=== PATIENT | female | born 2000 | race African-American/Black ===

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

== ENCOUNTER 2019-01-21 11:17 | Emergency (ER) | payer SELFPAY ==
[~2019-01-21] VITALS: Ht 160 cm; Wt 56.7 kg
[2019-01-21 11:31] VITALS: BP 122/60
[2019-01-21] MEDS ORDERED: RANI300T3 PO (11:40)
[2019-01-21] MEDS ORDERED: ONDA4TAB12 PO (11:40)
--- NOTE | 2019-01-21 11:41 | PHYS DOC ---
Past Medical History Past Medical History: No Pertinent History Past Surgical History: No Surgical History Alcohol Use: None Drug Use: None Adult General Chief Complaint Chief Complaint: ABDOMINAL PAIN [facility] HPI 18-year-old otherwise healthy female presents with several-day history of nausea and some upper abdominal cramping. She denies any fever chills or sweats. She denies any melena or hematemesis. She states she feels like she needs to vomit but she can't. She feels like it comes half-way up and stops. She denies that it mccloud her feels like there is acid in her esophagus.[] Review of Systems Review of Systems Constitutional: Denies fever or chills [] Eyes: Denies change in visual acuity, redness, or eye pain [] HENT: Denies nasal congestion or sore throat [] Respiratory: Denies cough or shortness of breath [] Cardiovascular: No additional information not addressed in HPI [] GI: Some upper abdominal discomfort and nausea as described in the history of present illness[] : Denies dysuria or hematuria [] Musculoskeletal: Denies back pain or joint pain [] Integument: Denies rash or skin lesions [] Neurologic: Denies headache, focal weakness or sensory changes [] Endocrine: Denies polyuria or polydipsia [] All other systems were reviewed and found to be within normal limits, except as documented in this note. Allergies Allergies Allergies Coded Allergies Type Severity Reaction Last Updated Verified butorphanol Allergy Severe Anaphylaxis 05/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 [] HENT: Normocephalic, atraumatic, bilateral external ears normal, oropharynx moist, no oral exudates, nose normal. [] Eyes: PERRLA, EOMI, conjunctiva normal, no discharge. [] Neck: Normal range of motion, no tenderness, supple, no stridor. [] Cardiovascular:Heart rate regular rhythm, no murmur [] Lungs & Thorax: Bilateral breath sounds clear to auscultation [] Abdomen: Soft nontender nondistended no rebound no guarding negative Tobin's. [ ] Skin: Warm, dry, no erythema, no rash. [] Back: No tenderness, no CVA tenderness. [] Extremities: No tenderness, no cyanosis, no clubbing, ROM intact, no edema. [] Neurologic: Alert and oriented X 3, normal motor function, normal sensory function, no focal deficits noted. [] Psychologic: Anxious. [] Current Patient Data Lab Values Laboratory Tests Test 01/21/19 11:26 POC Urine HCG, Qualitative Hcg negative (Negative) EKG EKG [] Radiology/Procedures Radiology/Procedures [] Course & Med Decision Making Course & Med Decision Making Pertinent Labs and Imaging studies reviewed. (See chart for details) [] Dragon Disclaimer Dragon Disclaimer This electronic medical record was generated, in whole or in part, using a voice recognition dictation system. Departure Departure Impression: Primary Impression: Nausea Additional Impression: Gastroesophageal reflux Disposition: 01 HOME, SELF-CARE Condition: STABLE Referrals: NO PCP (PCP) Patient Instructions: Gastroesophageal Reflux Disease, Adult, Nausea, Adult Additional Instructions: Return to the emergency department with any new or concerning symptoms. Take all your medication as directed. Scripts Ranitidine Hcl (ZANTAC) 300 Mg Tablet 1 TAB PO QHS for reflux, #90 TAB 3 Refills Prov: AMARILIS FELIX DO 01/21/19 Ondansetron (ONDANSETRON ODT) 4 Mg Tab.rapdis 1 TAB PO PRN Q6-8HRS for VOMITING, #16 TAB Prov: AMARILIS FELIX DO 01/21/19 Problem Qualifiers Additional Impression: Gastroesophageal reflux Esophagitis presence: without esophagitis Qualified Codes: K21.9 - Gastro- esophageal reflux disease without esophagitis AMARILIS FELIX DO Jan 21, 2019 11:40
[2019-01-21] MEDS ORDERED: ONDANSETRON ODT 4 MG TAB.RAPDIS. PO ONE (11:45)
== END 2019-01-21 11:55 | disposition home or self-care (01) ==
LOC: ER 11:17
DX: K21.9 Gastro-esophageal reflux disease without esophagitis (principal); Z88.8 Allergy status to other drugs, medicaments and biological substances
CPT/HCPCS: 81025; 99283; Q0162

== ENCOUNTER 2019-02-09 11:08 | Emergency (ER) | payer SELFPAY ==
[~2019-02-09] VITALS: Ht 160 cm; Wt 56.7 kg
[~2019-02-09 11:08] MED LIST changes: +ONDA4TAB12 PO; +RANI300T3 PO
[2019-02-09] MEDS ORDERED: IV NORMAL SALINE 1000ML BAG 1,000 ML IV SCH (12:07)
[2019-02-09] MEDS ORDERED: ONDANSETRON PF 4 MG/2 ML VIAL. IV ONE (12:15)
[2019-02-09] MEDS ORDERED: fentaNYL PF VIAL 100 MCG/2 ML VIAL IV ONE (12:15)
[2019-02-09 12:21] LABS: BASO % 0 % (0-3); EOS % 0 % (0-3); HEMATOCRIT 41.6 % (36.0-47.0); HEMOGLOBIN 13.7 g/dL (12.0-15.5); LYMPH # 0.7 x10^3/uL (1.0-4.8); LYMPH % 11 % (24-48); MEAN CORPUSCULAR HEMOGLOBIN 30 pg (25-35); MEAN CORPUSCULAR HGB CONC 33 g/dL (31-37); MEAN CORPUSCULAR VOLUME 91 fL (79-100); MONO # 0.5 x10^3/uL (0.0-1.1); MONO % 8 % (0-9); NEUT # 5.1 x10^3uL (1.8-7.7); NEUT % 81 % (31-73); PLATELET COUNT 180 x10^3/uL (140-400); RED BLOOD COUNT 4.55 x10^6/uL (3.50-5.40); RED CELL DISTRIBUTION WIDTH 13.1 % (11.5-14.5); WHITE BLOOD COUNT 6.3 x10^3/uL (4.0-11.0)
[2019-02-09 12:22] LABS: BARBITURATES NEG (NEG); BENZODIAZEPINES NEG (NEG); CANNABINOIDS POS (NEG); COCAINE NEG (NEG); METHADONE NEG (NEG); OPIATES NEG (NEG); PHENCYCLIDINE NEG (NEG)
[2019-02-09 12:23] LABS: BILIRUBIN,URINE NEGATIVE (NEG); CLARITY,URINE CLEAR; COLOR,URINE YELLOW; NITRITE,URINE NEGATIVE (NEG); PH,URINE 6.5; PROTEIN,URINE NEGATIVE (NEG-TRACE)
[2019-02-09 12:25] LABS: AMPHETAMINE/METHAMPHETAMINE NEG (NEG)
[2019-02-09 12:29] LABS: SQUAMOUS EPITHELIAL CELL,UR MOD /LPF
[2019-02-09 12:30] LABS: BACTERIA,URINE FEW /HPF (0-FEW); RBC,URINE OCC /HPF (0-2)
[2019-02-09 12:41] LABS: CALCIUM 8.8 mg/dL (8.5-10.1); CREATININE 0.8 mg/dL (0.6-1.0); GFR 111.8; POTASSIUM 3.5 mmol/L (3.5-5.1)
[2019-02-09 12:46] LABS: ALBUMIN/GLOBULIN RATIO 1.1 (1.0-1.7); TOTAL BILIRUBIN 0.8 mg/dL (0.2-1.0); TOTAL PROTEIN 7.5 g/dL (6.4-8.2)
--- NOTE | 2019-02-09 13:09 | PHYS DOC ---
Past Medical History Past Medical History: No Pertinent History Past Surgical History: No Surgical History Alcohol Use: Occasionally Drug Use: None Adult General Chief Complaint Chief Complaint: ABDOMINAL PAIN HPI HPI Patient is a 18 year old female who presents with low mid abdominal pain and cramping with vomiting and diarrhea since last night. Patient states she's vomited twice and had to times of diarrhea. He states the cramping comes and goes. Patient states she is also having vaginal discharge that is white limited because of her sexual transmitted diseases and treated. Patient denies any past medical history, takes no medications, has had no surgeries. Review of Systems Review of Systems Constitutional: Denies fever or chills [] Eyes: Denies change in visual acuity, redness, or eye pain [] HENT: Denies nasal congestion or sore throat [] Respiratory: Denies cough or shortness of breath [] Cardiovascular: No additional information not addressed in HPI [] GI: low mid abdominal pain, nausea, vomiting, denies bloody stools, + diarrhea [ ] : Denies dysuria or hematuria [] Musculoskeletal: Denies back pain or joint pain [] Integument: Denies rash or skin lesions [] Neurologic: Denies headache, focal weakness or sensory changes [] All other systems were reviewed and found to be within normal limits, except as documented in this note. Current Medications Current Medications Current Medications Medications (Trade) Dose Ordered Sig/Shabbir Start Time Stop Time Status Last Admin Dose Admin Azithromycin (Zithromax) 1,000 mg 1X ONCE 02/09/19 13:15 02/09/19 13:16 DC 02/09/19 13:55 1,000 MG Ceftriaxone Sodium (Rocephin Im) 250 mg 1X ONCE 02/09/19 13:15 02/09/19 13:16 DC 02/09/19 13:53 250 MG Fentanyl Citrate (Fentanyl 2ml Vial) 50 mcg 1X ONCE 02/09/19 12:15 02/09/19 12:16 DC 02/09/19 12:27 50 MCG Ondansetron HCl (Zofran) 4 mg 1X ONCE 02/09/19 12:15 02/09/19 12:16 DC 02/09/19 12:27 4 MG Sodium Chloride 1,000 ml @ 1,000 mls/hr Q1H 02/09/19 12:07 02/09/19 13:06 DC 02/09/19 12:27 1,000 MLS/HR Allergies Allergies Allergies Coded Allergies Type Severity Reaction Last Updated Verified butorphanol Allergy Severe Anaphylaxis 05/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 [] HENT: Normocephalic, atraumatic, bilateral external ears normal, oropharynx moist, no oral exudates, nose normal. [] Eyes: PERRLA, EOMI, conjunctiva normal, no discharge. [] Neck: Normal range of motion, no tenderness, supple, no stridor. [] Cardiovascular:Heart rate regular rhythm, no murmur [] Lungs & Thorax: Bilateral breath sounds clear to auscultation [] Abdomen: Bowel sounds normal, soft, no tenderness, no masses, no pulsatile masses. [] Skin: Warm, dry, no erythema, no rash. [] Back: No tenderness, no CVA tenderness. [] Extremities: No tenderness, no cyanosis, no clubbing, ROM intact, no edema. [] Neurologic: Alert and oriented X 3, normal motor function, normal sensory function, no focal deficits noted. [] Psychologic: Affect normal, judgement normal, mood normal. Normal Physical Exam[] Current Patient Data Vital Signs Vital Signs Date Time Temp Pulse Resp B/P (MAP) Pulse Ox O2 Delivery O2 Flow Rate FiO2 02/09/19 13:48 68 17 113/65 (81) 100 Room Air 02/09/19 11:55 98.5 98.5 Lab Values Laboratory Tests Test 02/09/19 11:45 02/09/19 11:47 02/09/19 12:10 Urine Collection Type Unknown Urine Color Yellow Urine Clarity Clear Urine pH 6.5 Urine Specific [place] 1.025 Urine Protein Negative mg/dL (NEG-TRACE) Urine Glucose (UA) Negative mg/dL (NEG) Urine Ketones (Stick) Negative mg/dL (NEG) Urine Blood Negative (NEG) Urine Nitrite Negative (NEG) Urine Bilirubin Negative (NEG) Urine Urobilinogen Dipstick 1.0 mg/dL (0.2 mg/dL) Urine Leukocyte Esterase Negative (NEG) Urine RBC Occ /HPF (0-2) Urine WBC 1-4 /HPF (0-4) Urine Squamous Epithelial Cells Mod /LPF Urine Bacteria Few /HPF (0-FEW) Urine Mucus Marked /LPF Urine Opiates Screen Neg (NEG) Urine Methadone Screen Neg (NEG) Urine Barbiturates Neg (NEG) Urine Phencyclidine Screen Neg (NEG) Urine Amphetamine/Methamphetamine Neg (NEG) Urine Benzodiazepines Screen Neg (NEG) Urine Cocaine Screen Neg (NEG) Urine Cannabinoids Screen Pos (NEG) Urine Ethyl Alcohol Neg (NEG) POC Urine HCG, Qualitative Hcg negative (Negative) White Blood Count 6.3 x10^3/uL (4.0-11.0) Red Blood Count 4.55 x10^6/uL (3.50-5.40) Hemoglobin 13.7 g/dL (12.0-15.5) Hematocrit 41.6 % (36.0-47.0) Mean Corpuscular Volume 91 fL (79-100) Mean Corpuscular Hemoglobin 30 pg (25-35) Mean Corpuscular Hemoglobin Concent 33 g/dL (31-37) Red Cell Distribution Width 13.1 % (11.5-14.5) Platelet Count 180 x10^3/uL (140-400) Neutrophils (%) (Auto) 81 % (31-73) H Lymphocytes (%) (Auto) 11 % (24-48) L Monocytes (%) (Auto) 8 % (0-9) Eosinophils (%) (Auto) 0 % (0-3) Basophils (%) (Auto) 0 % (0-3) Neutrophils # (Auto) 5.1 x10^3uL (1.8-7.7) Lymphocytes # (Auto) 0.7 x10^3/uL (1.0-4.8) L Monocytes # (Auto) 0.5 x10^3/uL (0.0-1.1) Eosinophils # (Auto) 0.0 x10^3/uL (0.0-0.7) Basophils # (Auto) 0.0 x10^3/uL (0.0-0.2) Sodium Level 139 mmol/L (136-145) Potassium Level 3.5 mmol/L (3.5-5.1) Chloride Level 101 mmol/L (98-107) Carbon Dioxide Level 26 mmol/L (21-32) Anion Gap 12 (6-14) Blood Urea Nitrogen 14 mg/dL (7-20) Creatinine 0.8 mg/dL (0.6-1.0) Estimated GFR (Cockcroft-Gault) 111.8 BUN/Creatinine Ratio 18 (6-20) Glucose Level 94 mg/dL (70-99) Calcium Level 8.8 mg/dL (8.5-10.1) Total Bilirubin 0.8 mg/dL (0.2-1.0) Aspartate Amino Transferase (AST) 21 U/L (15-37) Alanine Aminotransferase (ALT) 20 U/L (14-59) Alkaline Phosphatase 70 U/L (46-116) Total Protein 7.5 g/dL (6.4-8.2) Albumin 4.0 g/dL (3.4-5.0) Albumin/Globulin Ratio 1.1 (1.0-1.7) Lipase 128 U/L (73-393) Laboratory Tests 02/09/19 12:10 Laboratory Tests 02/09/19 12:10 Microbiology 02/09/19 Wet Prep - Final, Complete EKG EKG [] Radiology/Procedures Radiology/Procedures [] Course & Med Decision Making Course & Med Decision Making Patient is a 18 year old female who presents with low mid abdominal pain and cramping with vomiting and diarrhea since last night. Patient states she's vomited twice and had to times of diarrhea. She states the cramping comes and goes. Patient states she is also having vaginal discharge that is white limited because of her sexual transmitted diseases and treated. Patient denies any past medical history, takes no medications, has had no surgeries. Alert and oriented. Skin pink warm and dry. Abdomen is soft and nontender. Vital signs are within normal limits. Afebrile. Lungs are clear to auscultation all lobes. Mucus membranes are moist. Patient is up and walking around room with her toddler. Patient states she has not had a menstrual period since then december. Urine is negative. Patient denies dysuria, chest pain, shortness of air, recent illness, headache, dizziness. Patient is treated for Chlamydia and gonorrhea in the ED. urinalysis shows no infection. Blood work is unremarkable. Patient is discharged with nausea and vomiting and is to follow-up with her primary care provider. Patient is told she will be called in 48 hours if her chlamydia or gonorrhea are positive. Pelvic Exam: Gas Leak Inspector present Abdomen: Nontender External Genitalia: Normal Skin Speculum: Normal vaginal mucosa, white cervical discharge Bimanual: No adnexal masses or tenderness, No CMT Dragon Disclaimer Dragon Disclaimer This electronic medical record was generated, in whole or in part, using a voice recognition dictation system. Departure Departure Impression: Primary Impression: Nausea and vomiting Additional Impression: Concern about sexually transmitted disease in female without diagnosis Disposition: 01 HOME, SELF-CARE Condition: STABLE Referrals: NO PCP (PCP) Patient Instructions: Nausea and Vomiting, Sexually Transmitted Disease Additional Instructions: Follow up with primary care provider. Take medication as prescribed. You will only be called in 48 hours if you're chlamydia or gonorrhea comes back positive. You have been treated in the ED today for sexual transmitted diseases. Scripts Ondansetron (ONDANSETRON ODT) 4 Mg Tab.rapdis 1 TAB PO PRN Q6-8HRS, #16 TAB Prov: JUAQUIN KELLER APRN 02/09/19 Problem Qualifiers Primary Impression: Nausea and vomiting Vomiting type: unspecified Vomiting Intractability: non-intractable Qualified Codes: R11.2 - Nausea with vomiting, unspecified JUAQUIN KELLER APRN Feb 09, 2019 13:09
[2019-02-09] MEDS ORDERED: AZITHROMYCIN 250 MG TABLET. PO ONE (13:15)
[2019-02-09] MEDS ORDERED: cefTRIAXone IM 250 MG VIAL IM ONE (13:15)
[2019-02-09] MEDS ORDERED: ONDA4TAB12 PO (14:47)
[2019-02-09 15:00] VITALS: BP 111/64
[2019-02-10 13:27] LABS: GC PROBE Negative (Negative)
== END 2019-02-09 15:00 | disposition home or self-care (01) ==
LOC: ER 11:08
DX: R11.2 Nausea with vomiting, unspecified (principal); R10.30 Lower abdominal pain, unspecified; R19.7 Diarrhea, unspecified; N89.8 Other specified noninflammatory disorders of vagina; Z20.2 Contact with and (suspected) exposure to infections with a predominantly sexual mode of transmission; Z88.8 Allergy status to other drugs, medicaments and biological substances
CPT/HCPCS: 36415; 80053; 80307; 81001; 81025; 83690; 85025; 87491; 87591; 96361; 96372; 96374; 96375; 99283; J0696; J2405; J3010; J7030; Q0111; Q0144

== ENCOUNTER 2019-02-22 15:39 | Emergency (ER) | payer SELFPAY ==
[~2019-02-22] VITALS: Ht 160 cm; Wt 56.7 kg
[2019-02-22 16:13] VITALS: BP 109/62
[2019-02-22 16:42] LABS: BILIRUBIN,URINE NEGATIVE (NEG); CLARITY,URINE CLEAR; COLOR,URINE YELLOW; NITRITE,URINE NEGATIVE (NEG); PROTEIN,URINE NEGATIVE (NEG-TRACE)
[2019-02-22 16:48] LABS: BARBITURATES NEG (NEG); BENZODIAZEPINES NEG (NEG); CANNABINOIDS POS (NEG); COCAINE NEG (NEG); METHADONE NEG (NEG); OPIATES NEG (NEG); PHENCYCLIDINE NEG (NEG)
[2019-02-22 16:51] LABS: BACTERIA,URINE FEW /HPF (0-FEW); SQUAMOUS EPITHELIAL CELL,UR FEW /LPF; WBC,URINE 0 /HPF (0-4)
[2019-02-22 16:56] LABS: AMPHETAMINE/METHAMPHETAMINE NEG (NEG)
--- NOTE | 2019-02-22 16:58 | PHYS DOC ---
Past Medical History Past Medical History: No Pertinent History Past Surgical History: No Surgical History Alcohol Use: Occasionally Drug Use: None Adult General Chief Complaint Chief Complaint: VAGINAL BLEEDING HPI HPI Patient is a 18 year old female with no significant medical history who presents today complaining of vaginal bleeding after having intercourse a couple minutes ago. Patient states she was is on her menstrual cycle which she believes ended yesterday. Denies any pain. Denies any chance she is . Denies any concerns of STDs. Review of Systems Review of Systems Constitutional: Denies fever or chills [] Eyes: Denies change in visual acuity, redness, or eye pain [] HENT: Denies nasal congestion or sore throat [] Respiratory: Denies cough or shortness of breath [] Cardiovascular: No additional information not addressed in HPI [] GI: Reports vaginal bleeding after having intercourse. Denies abdominal pain, nausea, vomiting, bloody stools or diarrhea [] : Denies dysuria or hematuria [] Musculoskeletal: Denies back pain or joint pain [] Integument: Denies rash or skin lesions [] Neurologic: Denies headache, focal weakness or sensory changes [] All other systems were reviewed and found to be within normal limits, except as documented in this note. Allergies Allergies Allergies Coded Allergies Type Severity Reaction Last Updated Verified butorphanol Allergy Severe Anaphylaxis 05/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 [] HENT: Normocephalic, atraumatic, bilateral external ears normal, oropharynx moist, no oral exudates, nose normal. [] Eyes: PERRLA, EOMI, conjunctiva normal, no discharge. [] Neck: Normal range of motion, no tenderness, supple, no stridor. [] Cardiovascular:Heart rate regular rhythm, no murmur [] Lungs & Thorax: Bilateral breath sounds clear to auscultation [] Abdomen: Bowel sounds normal, soft, no tenderness, no masses, no pulsatile masses. [] Pelvic exam External pelvic appears normal, cervix is visualized, closed, no CMT, no adnexal tenderness, trace amount of bright red blood in the vaginal vault consistent with menstruation Skin: Warm, dry, no erythema, no rash. [] Back: No tenderness, no CVA tenderness. [] Extremities: No tenderness, no cyanosis, no clubbing, ROM intact, no edema. [] Neurologic: Alert and oriented X 3, normal motor function, normal sensory function, no focal deficits noted. [] Psychologic: Affect normal, judgement normal, mood normal. [] Current Patient Data Vital Signs Vital Signs Date Time Temp Pulse Resp B/P (MAP) Pulse Ox O2 Delivery O2 Flow Rate FiO2 02/22/19 16:13 98.0 84 18 109/62 (78) 100 Room Air 98.0 Lab Values Laboratory Tests Test 02/22/19 16:10 02/22/19 16:37 Urine Collection Type Unknown Urine Color Yellow Urine Clarity Clear Urine pH 6.0 Urine Specific [place] 1.020 Urine Protein Negative mg/dL (NEG-TRACE) Urine Glucose (UA) Negative mg/dL (NEG) Urine Ketones (Stick) Negative mg/dL (NEG) Urine Blood Moderate (NEG) Urine Nitrite Negative (NEG) Urine Bilirubin Negative (NEG) Urine Urobilinogen Dipstick 1.0 mg/dL (0.2 mg/dL) Urine Leukocyte Esterase Negative (NEG) Urine RBC 1-2 /HPF (0-2) Urine WBC 0 /HPF (0-4) Urine Squamous Epithelial Cells Few /LPF Urine Bacteria Few /HPF (0-FEW) Urine Mucus Marked /LPF POC Urine HCG, Qualitative Hcg negative (Negative) Microbiology 02/22/19 Wet Prep - Final, Complete EKG EKG [] Radiology/Procedures Radiology/Procedures [] Course & Med Decision Making Course & Med Decision Making Pertinent Labs and Imaging studies reviewed. (See chart for details) This is a 18-year-old female patient who presents to the ED today complaining of vaginal bleeding after having intercourse a couple minutes ago. She was on her cycle which she believes ended yesterday. On physical exam patient appears to be on her menstrual cycle. There is nothing unusual about her bleeding right now. Informed patient a menstrual cycle typically needs a couple days to completely stop. Urine analysis is negative for infection, negative urine hCG, wet prep negative. Patient was discharged to home. Dragon Disclaimer Dragon Disclaimer This electronic medical record was generated, in whole or in part, using a voice recognition dictation system. Departure Departure Impression: Primary Impression: Vaginal bleeding Disposition: HOME, SELF-CARE Condition: STABLE Referrals: NO PCP (PCP) STUBBS,RANJIT K MD follow up as needed Patient Instructions: Uterine Bleeding, Dysfunctional Additional Instructions: You were evaluated in the emergency room for bleeding, this is consistent with your menstrual cycle. Please allow your body some time to rest after your cycles to make sure the bleeding has completely stopped before resuming sex. ALLI CORTEZ APRN Feb 22, 2019 16:58
[2019-02-23 14:14] LABS: GC PROBE Negative (Negative)
== END 2019-02-22 17:05 | disposition home or self-care (01) ==
LOC: ER 15:39
DX: N93.9 Abnormal uterine and vaginal bleeding, unspecified (principal); Z88.8 Allergy status to other drugs, medicaments and biological substances
CPT/HCPCS: 80307; 81001; 81025; 87491; 87591; 99283; Q0111

== ENCOUNTER 2019-05-08 13:27 | Emergency (ER) | payer SELFPAY ==
[~2019-05-08] VITALS: Ht 160 cm; Wt 56.7 kg
[2019-05-08 13:40] VITALS: BP 109/62
[2019-05-08 13:58] LABS: BILIRUBIN,URINE NEGATIVE (NEG); CLARITY,URINE CLEAR; COLOR,URINE YELLOW; NITRITE,URINE NEGATIVE (NEG); PROTEIN,URINE NEGATIVE (NEG-TRACE)
[2019-05-08 14:10] LABS: BACTERIA,URINE 0 /HPF (0-FEW); SQUAMOUS EPITHELIAL CELL,UR FEW /LPF; WBC,URINE RARE /HPF (0-4)
[2019-05-08 14:40] LABS: U PREG PATIENT NEGATIVE (NEG)
--- NOTE | 2019-05-08 15:22 | PHYS DOC ---
Past Medical History Past Medical History: No Pertinent History Past Surgical History: No Surgical History Alcohol Use: Occasionally Drug Use: None Adult General Chief Complaint Chief Complaint: OTHER COMPLAINTS HPI HPI 19-year-old female presents to ER via POV was initially vague on reason for coming to ER. While discussing reasons for coming to the ER patient became tearful and stated her and her boyfriend had gotten into an argument and had since split up. Following split patient reports he called her stating she needed to get tested as he has HIV. Patient was anxious and tearful while discussing this. Patient denies any symptoms and denies having confirmation with tests that he had any STDs/disease process. Patient denies fever, urinary symptoms, vaginal symptoms, or nausea and vomiting. She reports she has had some abdominal di scomfort but relates that to ongoing anxiety and stress following conversation with her ex boyfriend. Pt is wanting STD tests while in the ER. Pt denies SI. She is currently on her menstrual cycle denies any abnormal vaginal bleeding. Review of Systems Review of Systems Constitutional: Denies fever/fatigue Eyes: Denies change in visual acuity, redness, or eye pain [] HENT: Denies nasal congestion or sore throat [] Respiratory: Denies cough or shortness of breath [] Cardiovascular: No additional information not addressed in HPI [] GI: Denies nausea, vomiting, bloody stools or diarrhea. Reports mid abd pain intermittently : Denies dysuria or hematuria. Denies abnorm. vaginal bleeding/discharge- currently on menses Musculoskeletal: Denies back pain or joint pain [] Integument: Denies rash or skin lesions [] Neurologic: Denies headache, focal weakness or sensory changes [] All other systems were reviewed and found to be within normal limits, except as documented in this note. Allergies Allergies Allergies Coded Allergies Type Severity Reaction Last Updated Verified butorphanol Allergy Severe Anaphylaxis 05/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 [] HENT: Normocephalic, atraumatic, bilateral external ears normal, oropharynx moist, no oral exudates, nose normal. [] Eyes: PERRLA, EOMI, conjunctiva normal, no discharge. [] Neck: Normal range of motion, no tenderness, supple, no stridor. [] Cardiovascular:Heart rate regular rhythm, no murmur [] Lungs & Thorax: Bilateral breath sounds clear to auscultation [] Abdomen: Bowel sounds normal, soft, no tenderness, no masses, no pulsatile masses. [] Skin: Warm, dry, no erythema, no rash. [] Back: No tenderness, no CVA tenderness. [] Extremities: No tenderness, no cyanosis, no clubbing, ROM intact, no edema. [] Neurologic: Alert and oriented X 3, normal motor function, normal sensory function, no focal deficits noted. [] Psychologic: Affect normal, judgement normal, mood normal. [] Current Patient Data Vital Signs Vital Signs Date Time Temp Pulse Resp B/P (MAP) Pulse Ox O2 Delivery O2 Flow Rate FiO2 05/08/19 13:40 98.6 84 16 109/62 (78) 99 Room Air 98.6 Lab Values Laboratory Tests Test 05/08/19 13:50 Urine Collection Type Unknown Urine Color Yellow Urine Clarity Clear Urine pH 6.0 Urine Specific [place] 1.020 Urine Protein Negative mg/dL (NEG-TRACE) Urine Glucose (UA) Negative mg/dL (NEG) Urine Ketones (Stick) Negative mg/dL (NEG) Urine Blood Moderate (NEG) Urine Nitrite Negative (NEG) Urine Bilirubin Negative (NEG) Urine Urobilinogen Dipstick 1.0 mg/dL (0.2 mg/dL) Urine Leukocyte Esterase Negative (NEG) Urine RBC 11-20 /HPF (0-2) Urine WBC Rare /HPF (0-4) Urine Squamous Epithelial Cells Few /LPF Urine Bacteria 0 /HPF (0-FEW) Urine Mucus Marked /LPF Urine Test Negative (NEG) Microbiology 05/08/19 Wet Prep - Final, Complete EKG EKG [] Radiology/Procedures Radiology/Procedures Pelvic Exam: RN Jessica present 1515 Abdomen: Nontender External Genitalia: Normal Skin- no rash/lesions Speculum: Normal vaginal mucosa, thin darker blood in vag. vault- no clots/tissue. Cervical os closed. No Bimanual: No adnexal masses or tenderness, No CMT Course & Med Decision Making Course & Med Decision Making Pertinent Labs reviewed. (See chart for details) Patient was evaluated in the ER in for concerns r/t ex-boyfriend's remark during argument that he had HIV. Indepth conversation had with patient along with emotional support being provided as she was quite anxious and tearful during initial exam. Dragon Disclaimer Dragon Disclaimer This electronic medical record was generated, in whole or in part, using a voice recognition dictation system. Departure Departure Impression: Primary Impression: Concern about sexually transmitted disease in female withoutdiagnosis Disposition: 01 HOME, SELF-CARE Condition: STABLE Referrals: NO PCP (PCP) Patient Instructions: Safe Sex Additional Instructions: You had concerns for sexually transmitted disease however were having no symptoms. You should follow-up on your test results in 2-3 days for medical records or you will be contacted by phone if abnormal results come back. With the or other concerns follow-up with your primary care physician and/or a clinic for further testing. VANESSA ESQUIVEL APRN May 08, 2019 15:22
== END 2019-05-08 15:58 | disposition home or self-care (01) ==
LOC: ER 13:27
DX: Z20.2 Contact with and (suspected) exposure to infections with a predominantly sexual mode of transmission (principal); R10.9 Unspecified abdominal pain; Z88.8 Allergy status to other drugs, medicaments and biological substances
CPT/HCPCS: 81001; 81025; 87491; 87591; 99284; Q0111

== ENCOUNTER 2019-10-25 12:59 | Emergency (ER) | payer SELFPAY | END 2019-10-25 14:34 | disposition left against medical advice (07) | LOC: ER 12:59 | DX: R11.2 Nausea with vomiting, unspecified (principal); R19.7 Diarrhea, unspecified; Z53.21 Procedure and treatment not carried out due to patient leaving prior to being seen by health care provider ==

== ENCOUNTER 2020-01-09 21:10 | Emergency (ER) | payer SELFPAY ==
[~2020-01-09] VITALS: Ht 160 cm; Wt 58.1 kg
[2020-01-09 21:32] VITALS: BP 112/56
[2020-01-09 21:35] LABS: BILIRUBIN,URINE NEGATIVE (NEG); CLARITY,URINE CLEAR; COLOR,URINE YELLOW; NITRITE,URINE NEGATIVE (NEG); PH,URINE 6.5; PROTEIN,URINE NEGATIVE (NEG-TRACE)
[2020-01-09 21:48] LABS: SQUAMOUS EPITHELIAL CELL,UR MOD /LPF; WBC,URINE TNTC /HPF (0-4)
[2020-01-09 21:49] LABS: BACTERIA,URINE FEW /HPF (0-FEW)
[2020-01-09] MEDS ORDERED: CEPH-264 PO (21:57)
[2020-01-09] MEDS ORDERED: PHEN-318 PO (21:57)
--- NOTE | 2020-01-09 21:57 | PHYS DOC ---
Past Medical History Past Medical History: No Pertinent History Past Surgical History: No Surgical History Smoking Status: Never Smoker Alcohol Use: Occasionally Drug Use: None Adult General Chief Complaint Chief Complaint: PAIN ON URINATION HPI HPI Patient is a 19 year old AA female who presents to emergency department with complaints of increased urinary frequency and pressure in her bladder after urination for the last 3 days. She denies any fever, hematuria, incontinence, nausea, vomiting, diarrhea, abdominal pain, sore throat, ear pain, or headache. Patient denies any irregular vaginal bleeding, vaginal odor, or abnormal vaginal discharge. She denies any concerns of sexually transmitted infections. Patient states she has noticed that her urine smells bad. She currently denies any pain at rest. Review of Systems Review of Systems All other ROS is negative unless otherwise noted in HPI. 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 [] HENT: Normocephalic, atraumatic, bilateral external ears normal, oropharynx moist, no oral exudates, nose normal. [] Eyes: PERRLA, EOMI, conjunctiva normal, no discharge. [] Neck: Normal range of motion, no stridor. [] Cardiovascular:Heart rate regular rhythm, no murmur [] Lungs & Thorax: Bilateral breath sounds clear to auscultation, Respirations even and unlabored, no retractions, no respiratory distress [] Abdomen: soft, no tenderness Skin: Warm, dry, no erythema, no rash. [] Back:No CVA tenderness. [] Extremities: No cyanosis, ROM intact, Neurologic: Alert and oriented X 3, no focal deficits noted. [] Psychologic: Affect normal, judgement normal, mood normal. [] Current Patient Data Vital Signs Vital Signs Date Time Temp Pulse Resp B/P (MAP) Pulse Ox O2 Delivery O2 Flow Rate FiO2 01/09/20 21:32 98.1 65 16 112/56 (74) 99 Room Air 98.1 Lab Values Laboratory Tests Test 01/09/20 21:27 01/09/20 21:31 Urine Collection Type Unknown Urine Color Yellow Urine Clarity Clear Urine pH 6.5 Urine Specific [place] 1.025 Urine Protein Negative mg/dL (NEG-TRACE) Urine Glucose (UA) Negative mg/dL (NEG) Urine Ketones (Stick) Negative mg/dL (NEG) Urine Blood Small (NEG) Urine Nitrite Negative (NEG) Urine Bilirubin Negative (NEG) Urine Urobilinogen Dipstick 1.0 mg/dL (0.2 mg/dL) Urine Leukocyte Esterase Moderate (NEG) Urine RBC 11-20 /HPF (0-2) Urine WBC Tntc /HPF (0-4) Urine Squamous Epithelial Cells Mod /LPF Urine Bacteria Few /HPF (0-FEW) Urine Mucus Marked /LPF POC Urine HCG, Qualitative Hcg negative (Negative) EKG EKG [] Radiology/Procedures Radiology/Procedures [] Course & Med Decision Making Course & Med Decision Making Pertinent Labs and Imaging studies reviewed. (See chart for details) [] Dragon Disclaimer Dragon Disclaimer This electronic medical record was generated, in whole or in part, using a voice recognition dictation system. Departure Departure Impression: Primary Impression: UTI (urinary tract infection) Disposition: HOME, SELF-CARE Condition: STABLE Referrals: NO PCP (PCP) Patient Instructions: Urinary Tract Infection, [id number] Additional Instructions: Fill prescription(s) and use as directed. Avoid bladder irritants such as caffeine, carbonation, and spicy foods. Increase clear fluids. Follow up with your primary care doctor if symptoms persist, return to the ER if symptoms worsen. Scripts Phenazopyridine Hcl (PYRIDIUM) 200 Mg Tablet 1 TAB PO TID for urinary discomfort for 3 Days, #9 TAB 0 Refills Prov: YADIEL CERVANTES APRN 01/09/20 Cephalexin (KEFLEX) 500 Mg Capsule 500 MG PO BID for 7 Days, #14 CAP 0 Refills Prov: YADIEL CERVANTES APRN 01/09/20 Problem Qualifiers Primary Impression: UTI (urinary tract infection) Urinary tract infection type: acute cystitis Hematuria presence: with hematuria Qualified Codes: N30.01 - Acute cystitis with hematuria YADIEL CERVANTES APRN Jan 09, 2020 21:57
== END 2020-01-09 22:16 | disposition home or self-care (01) ==
LOC: ER 21:10
DX: N30.01 Acute cystitis with hematuria (principal); R35.0 Frequency of micturition; Z88.6 Allergy status to analgesic agent
CPT/HCPCS: 81001; 81025; 87086; 99283

== ENCOUNTER 2020-02-09 08:33 | Emergency (ER) | payer SELFPAY ==
[~2020-02-09] VITALS: Ht 160 cm; Wt 58.0 kg
[~2020-02-09 08:33] MED LIST changes: +CEPH-264 PO; +PHEN-318 PO
[2020-02-09 09:05] LABS: BILIRUBIN,URINE NEGATIVE (NEG); CLARITY,URINE CLEAR; COLOR,URINE YELLOW; NITRITE,URINE NEGATIVE (NEG); PROTEIN,URINE NEGATIVE (NEG-TRACE)
[2020-02-09] MEDS ORDERED: ONDANSETRON ODT 4 MG TAB.RAPDIS. PO ONE (09:15)
[2020-02-09] MEDS ORDERED: DICYCLOMINE HCL 10 MG CAPSULE PO ONE (09:15)
[2020-02-09] MEDS ORDERED: AZITHROMYCIN 250 MG TABLET. PO ONE (09:15)
[2020-02-09] MEDS ORDERED: cefTRIAXone IM 250 MG VIAL IM ONE (09:15)
--- NOTE | 2020-02-09 09:15 | PHYS DOC ---
Past Medical History Past Medical History: No Pertinent History Past Surgical History: No Surgical History Smoking Status: Never Smoker Alcohol Use: Occasionally Drug Use: None Adult General Chief Complaint Chief Complaint: ABDOMINAL PAIN HPI HPI Patient is a 19 year old Female who presents with 3 days of abdominal " pressure". She states she has had some nausea and 2 bouts of diarrhea this morning. Patient states the first day that this started she did have burning with urination but has not since. She states that she has had white vaginal discharge that is abnormal for her and does not have an odor. She denies any vaginal itching, fever, vomiting, flank pain. Review of Systems Review of Systems GI: abdominal pressure, nausea, denies vomiting, bloody stools. + diarrhea [] : Vaginal Discharge. Denies dysuria or hematuria [] All other systems were reviewed and found to be within normal limits, except as documented in this note. Current Medications Current Medications Current Medications Medications (Trade) Dose Ordered Sig/Shabbir Start Time Stop Time Status Last Admin Dose Admin Azithromycin (Zithromax) 1,000 mg 1X ONCE 02/09/20 09:15 02/09/20 09:16 DC 02/09/20 09:45 1,000 MG Ceftriaxone Sodium (Rocephin Im) 250 mg 1X ONCE 02/09/20 09:15 02/09/20 09:16 DC 02/09/20 09:46 250 MG Dicyclomine HCl (Bentyl) 10 mg 1X ONCE 02/09/20 09:15 02/09/20 09:16 DC 02/09/20 09:45 10 MG Ondansetron HCl (Zofran Odt) 4 mg 1X ONCE 02/09/20 09:15 02/09/20 09:16 DC 02/09/20 09:45 4 MG Allergies Allergies Allergies Coded Allergies Type Severity Reaction Last Updated Verified butorphanol Allergy Severe Anaphylaxis 05/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 [] HENT: Normocephalic, atraumatic, bilateral external ears normal, oropharynx moist, no oral exudates, nose normal. [] Eyes: PERRLA, EOMI, conjunctiva normal, no discharge. [] Neck: Normal range of motion, no tenderness, supple, no stridor. [] Cardiovascular:Heart rate regular rhythm, no murmur [] Lungs & Thorax: Bilateral breath sounds clear to auscultation [] Abdomen: Bowel sounds normal, soft, no tenderness, no masses, no pulsatile masses. [] Skin: Warm, dry, no erythema, no rash. [] Back: No tenderness, no CVA tenderness. [] Extremities: No tenderness, no cyanosis, no clubbing, ROM intact, no edema. [] Neurologic: Alert and oriented X 3, normal motor function, normal sensory function, no focal deficits noted. [] Psychologic: Affect normal, judgement normal, mood normal. Normal Physical Exam[] Current Patient Data Vital Signs Vital Signs Date Time Temp Pulse Resp B/P (MAP) Pulse Ox O2 Delivery O2 Flow Rate FiO2 02/09/20 08:52 98.9 85 16 113/55 (74) 97 Room Air 98.9 Lab Values Laboratory Tests Test 02/09/20 08:50 02/09/20 08:55 Urine Collection Type Unknown Urine Color Yellow Urine Clarity Clear Urine pH 6.0 (<5.0-8.0) Urine Specific [place] 1.025 (1.000-1.030) Urine Protein Negative mg/dL (NEG-TRACE) Urine Glucose (UA) Negative mg/dL (NEG) Urine Ketones (Stick) Negative mg/dL (NEG) Urine Blood Negative (NEG) Urine Nitrite Negative (NEG) Urine Bilirubin Negative (NEG) Urine Urobilinogen Dipstick 1.0 mg/dL (0.2 mg/dL) Urine Leukocyte Esterase Small (NEG) Urine RBC 0 /HPF (0-2) Urine WBC 5-10 /HPF (0-4) Urine Squamous Epithelial Cells Many /LPF Urine Bacteria Many /HPF (0-FEW) POC Urine HCG, Qualitative Hcg negative (Negative) Microbiology 02/09/20 Wet Prep - Final, Complete EKG EKG [] Radiology/Procedures Radiology/Procedures [] Course & Med Decision Making Course & Med Decision Making Pertinent Labs and Imaging studies reviewed. (See chart for details) Patient states she would like to be treated for sexually transmitted diseases today. Alert and oriented. Speaks in full clear sentences. Ambulatory with a steady gait. Abdomen is soft and nontender. Skin pink warm and dry. Vital signs within normal limits. Afebrile. Patient is educated that she will be called in 48 hours only if her results come back positive. Patient states her understanding. Upon pelvic exam there was no cervical motion tenderness, white vaginal discharge, irritation to the cervix. Ashley RIVERA was my estimate clerk. [] Fabian Disclaimer Fabian Disclaimer This electronic medical record was generated, in whole or in part, using a voice recognition dictation system. Departure Departure Impression: Primary Impression: Concern about sexually transmitted disease in female withoutdiagnosis Additional Impressions: Bacterial vaginosis Nausea UTI (urinary tract infection) Disposition: HOME, SELF-CARE Condition: STABLE Referrals: NO PCP (PCP) Patient Instructions: Bacterial Vaginosis, [id number], Sexually Transmitted Disease, Urinary Tract Infection Additional Instructions: Follow up with primary care provider. Use medication as prescribed. Remember you will be called in 48 hours only if your results are positive. Scripts Ondansetron (ONDANSETRON ODT) 4 Mg Tab.rapdis 1 TAB PO PRN Q6-8HRS, #16 TAB Prov: JUAQUIN KELLER APRN 02/09/20 Cephalexin (KEFLEX) 500 Mg Capsule 1 CAP PO BID for 7 Days, #14 CAP 0 Refills Prov: JUAQUIN KELLER APRN 02/09/20 Metronidazole (METRONIDAZOLE) 70 Gm Gel.w.appl 1 APPFUL VG QHS for 5 Days, #70 GM Prov: JUAQUIN KELLER APRN 02/09/20 Problem Qualifiers Additional Impressions: UTI (urinary tract infection) Urinary tract infection type: site unspecified Hematuria presence: without hematuria Qualified Codes: N39.0 - Urinary tract infection, site not specified JUAQUIN KELLER APRN Feb 09, 2020 09:15
[2020-02-09 09:20] LABS: BACTERIA,URINE MANY /HPF (0-FEW); RBC,URINE 0 /HPF (0-2)
[2020-02-09 09:21] LABS: SQUAMOUS EPITHELIAL CELL,UR MANY /LPF
[2020-02-09] MEDS ORDERED: METR70GE2 VG (09:53)
[2020-02-09] MEDS ORDERED: CEPH-264 PO (09:54)
[2020-02-09] MEDS ORDERED: ONDA4TAB12 PO (09:54)
[2020-02-09 10:01] VITALS: BP 120/58
[2020-02-11 02:07] LABS: GC PROBE Negative (Negative)
== END 2020-02-09 10:02 | disposition home or self-care (01) ==
LOC: ER 08:33
DX: N39.0 Urinary tract infection, site not specified (principal); N76.0 Acute vaginitis; R11.0 Nausea; R19.7 Diarrhea, unspecified; Z88.5 Allergy status to narcotic agent; Z20.2 Contact with and (suspected) exposure to infections with a predominantly sexual mode of transmission
CPT/HCPCS: 81001; 81025; 87086; 87491; 87591; 96372; 99284; J0696; Q0111; 36415; Q0162

== ENCOUNTER 2020-10-02 09:47 | Emergency (ER) | payer SELFPAY ==
[~2020-10-02] VITALS: Ht 160 cm; Wt 59.1 kg
[~2020-10-02 09:47] MED LIST changes: +METR70GE2 VG; -PYRI25TA3 PO; +PYRI50TA6 PO
--- NOTE | 2020-10-02 10:33 | PHYS DOC ---
Past Medical History Past Medical History: No Pertinent History Past Surgical History: No Surgical History Smoking Status: Former Smoker Alcohol Use: Occasionally Drug Use: None General Adult EDM: Chief Complaint: VAGINAL PROBLEM HPI: HPI: Patient is a 20 year old female who presents with crampy abdominal pain and vaginal discharge. The vaginal discharge was described as white and yellowish with no noticeable odor. The abdominal pain started 4 days ago and the vaginal discharge started 2 days ago. Pt has never had this pain before. The abdominal pain is rated 7.5/10 and is diffuse. Pt states she had an STI in the past but does not remember what it was. Pt has 2 partners and uses condoms with 1 of them. Pt denies pain on urination but endorses diarrhea that started 4 days ago but resolved 2 days ago. Review of Systems: Review of Systems: Constitutional: Denies fever or chills Eyes: Denies redness or eye pain HENT: Denies nasal congestion or sore throat Respiratory: Denies cough or shortness of breath Cardiovascular: Denies chest pain or palpitations GI: Denies nausea or vomiting, endorses abdominal pain : Denies dysuria or hematuria Musculoskeletal: Denies back pain or joint pain Integument: Denies rash or skin lesions Neurologic: Denies headache, focal weakness or sensory changes Complete systems were reviewed and found to be within normal limits, except as documented in this note. Allergies: Allergies: Allergies Coded Allergies Type Severity Reaction Last Updated Verified butorphanol Allergy Severe Anaphylaxis 05/04/17 Yes Physical Exam: PE: Constitutional: Well developed, well nourished, no acute distress, non-toxic appearance HENT: Normocephalic, atraumatic Eyes: PERRL, EOMI, conjunctiva normal, no discharge Neck: Normal range of motion, no tenderness, supple Lungs & Thorax: No respiratory distress, equal chest rise and fall Abdomen: Soft, suprapubic tenderness to palpation, no masses or organomegaly Pelvic: RN lead developer, external genitalia normal appearing, no CMT, no adnexal tenderness, small amount of yellow bloody cervical discharge Skin: Warm, dry, no erythema, no rash Back: No tenderness, no CVA tenderness Extremities: No tenderness, ROM intact, no edema Neurologic: Alert and oriented X 3, normal motor function, normal sensory function, no focal deficits noted Psychologic: Affect normal, judgment normal EKG: EKG: [] Radiology/Procedures: Radiology/Procedures: [] Course & Med Decision Making: Course & Med Decision Making Pertinent Labs and Imaging studies reviewed. (See chart for details) 20 year old female presents with abdominal pain and vaginal discharge. Urinalysis ordered and posted. Pelvic exam preformed and demonstrated small amount of yellow bloody cervical discharge. Chlamydia and gonorrhea swabs pending. Empiric treatment for chlamydia and gonorrhea given today. Patient stable for discharge with outpatient follow-up with PCP. Discussed findings and plan with patient, who acknowledges understanding and agreement. Dragon Disclaimer: Dragon Disclaimer: This electronic medical record was generated, in whole or in part, using a voice recognition dictation system. Departure Departure Impression: Primary Impression: Bacterial vaginosis Additional Impression: Vaginal discharge Disposition: 01 DC HOME SELF CARE/HOMELESS Condition: STABLE Referrals: NO PCP (PCP) JOSI AGUILAR Jr, MD Patient Instructions: Bacterial Vaginosis, [id number], Sexually Transmitted Disease, [id number] Additional Instructions: Use over the counter Tylenol and/or Ibuprofen for pain or discomfort. Pelvic rest for 1 week (no sexually activity, douche, tampons). Take antibiotics until complete. Scripts Metronidazole (FLAGYL) 500 Mg Tablet 500 MG PO BID for Vaginosis, #14 TAB Prov: IZAIAH PINO DO 10/02/20 IZAIAH PINO DO Oct 02, 2020 10:33
[2020-10-02 10:38] LABS: BILIRUBIN,URINE NEGATIVE (NEG); CLARITY,URINE CLEAR; COLOR,URINE YELLOW; NITRITE,URINE NEGATIVE (NEG); PROTEIN,URINE NEGATIVE (NEG-TRACE)
[2020-10-02 10:49] LABS: BACTERIA,URINE FEW /HPF (0-FEW); RBC,URINE 0 /HPF (0-2)
[2020-10-02] MEDS ORDERED: AZITHROMYCIN 250 MG TABLET. PO ONE (12:00)
[2020-10-02] MEDS ORDERED: cefTRIAXone IM 250 MG VIAL IM ONE (12:00)
[2020-10-02] MEDS ORDERED: METR500T PO (12:26)
[2020-10-02 12:45] VITALS: BP 119/71
[2020-10-04 02:13] LABS: GC PROBE Negative (Negative)
== END 2020-10-02 12:50 | disposition home or self-care (01) ==
LOC: ER 09:47
DX: N76.0 Acute vaginitis (principal); B96.89 Other specified bacterial agents as the cause of diseases classified elsewhere; Z87.891 Personal history of nicotine dependence; Z88.8 Allergy status to other drugs, medicaments and biological substances
CPT/HCPCS: 81001; 81025; 87086; 87491; 87591; 96372; 99285; J0696; Q0111

== ENCOUNTER 2021-02-17 09:42 | Emergency (ER) | payer SELFPAY ==
[~2021-02-17] VITALS: Ht 160 cm; Wt 63.6 kg
[~2021-02-17 09:42] MED LIST changes: +METR500T PO
[2021-02-17 10:25] VITALS: BP 127/65
[2021-02-17] MEDS ORDERED: cefTRIAXone IM 250 MG VIAL IM ONE (10:30)
--- NOTE | 2021-02-17 10:33 | ED.ADGEN ---
Past Medical History Past Medical History: No Pertinent History Past Surgical History: No Surgical History Smoking Status: Former Smoker Alcohol Use: None Drug Use: None General Adult EDM: Chief Complaint: VAGINAL PROBLEM HPI: HPI: Patient is a 20 year old AA female who presents emergency department with com plaints of irregular yellow vaginal discharge for the last week. Patient denies any vaginal odor, dysuria, hematuria, increased urinary frequency, back pain, abdominal pain, nausea, vomiting, diarrhea, sore throat, or fever. Patient reports concerns of sexually transmitted infection because her boyfriend cheated on her a month ago. Patient reports some pelvic discomfort at this time that she states feels like a cramping sensation. She denies any vaginal bleeding and reports her last period was 2 weeks ago. She currently rates her discomfort a 5 out of 10 on the pain scale, she denies any alleviating or exacerbating factors. Review of Systems: Review of Systems: Complete ROS is negative unless otherwise noted in HPI. 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 HENT: Normocephalic, atraumatic, bilateral external ears normal, nose normal. Eyes: PERRLA, EOMI, conjunctiva normal, no discharge. Neck: Normal range of motion, no stridor. Cardiovascular: Heart rate regular rhythm Lungs & Thorax: Respirations even and unlabored, no retractions, no respiratory distress Pelvic Exam: Inseminator present Umesh RIVERA Abdomen: Nontender, soft External Genitalia: Normal Skin Speculum: Normal vaginal mucosa, purulent blood-streaked cervical discharge Bimanual: No adnexal masses or tenderness, No CMT Skin: Warm, dry, no erythema, no rash. Extremities: No cyanosis, ROM intact, no edema. Neurologic: Alert and oriented X 3, normal motor, normal sensory, no focal deficits noted. Psychologic: Affect normal, judgement normal, mood normal. Current Patient Data: Labs: Laboratory Tests Test 02/17/21 11:00 02/17/21 11:05 Urine Collection Type Unknown Urine Color Yellow Urine Clarity Clear Urine pH 7.5 (<5.0-8.0) Urine Specific [place] 1.020 (1.000-1.030) Urine Protein Negative mg/dL (NEG-TRACE) Urine Glucose (UA) Negative mg/dL (NEG) Urine Ketones (Stick) Negative mg/dL (NEG) Urine Blood Negative (NEG) Urine Nitrite Negative (NEG) Urine Bilirubin Negative (NEG) Urine Urobilinogen Dipstick 1.0 mg/dL (0.2 mg/dL) Urine Leukocyte Esterase Trace (NEG) Urine RBC 0 /HPF (0-2) Urine WBC 1-4 /HPF (0-4) Urine Squamous Epithelial Cells Few /LPF Urine Amorphous Sediment Present /HPF Urine Bacteria Few /HPF (0-FEW) Urine Mucus Slight /LPF POC Urine HCG, Qualitative Hcg negative (Negative) Microbiology 02/17/21 Wet Prep - Final, Complete Vital Signs: Vital Signs Date Time Temp Pulse Resp B/P (MAP) Pulse Ox O2 Delivery O2 Flow Rate FiO2 02/17/21 10:25 98.2 69 18 127/65 (85) 95 Room Air 98.2 EKG: EKG: [] Heart Score: C/O Chest Pain: No Risk Scores: Score 0 - 3: 2.5% MACE over next 6 weeks - Discharge Home Score 4 - 6: 20.3% MACE over next 6 weeks - Admit for Clinical Observation Score 7 - 10: 72.7% MACE over next 6 weeks - Early Invasive Strategies Radiology/Procedures: Radiology/Procedures: [] Course & Med Decision Making: Course & Med Decision Making Pertinent Labs and Imaging studies reviewed. (See chart for details) Patient is a 20-year-old female who presents emergency department for evaluation of irregular vaginal discharge. Gonorrhea and Chlamydia tests are pending. Wet mount was concerning for bacterial vaginosis. UA is unremarkable. Patient was treated prophylactically with 500 mg of IM Rocephin, and given a prescriptions for doxycycline and Flagyl vaginal gel. Patient was instructed to avoid having intercourse until the results of gonorrhea and chlamydia testing are available, patient was notified that these results would not be available for 48 hours. If one or both of these tests is positive, patient needs to refrain from intercourse for approximately 1 week following the treatment of any current partners. [] Fabian Disclaimer: Fabian Disclaimer: This electronic medical record was generated, in whole or in part, using a voice recognition dictation system. Departure Departure Impression: Primary Impression: Concern about sexually transmitted disease in female withoutdiagnosis Additional Impression: Bacterial vaginosis Disposition: 01 DC HOME SELF CARE/HOMELESS Condition: STABLE Referrals: NO PCP (PCP) Patient Instructions: Sexually Transmitted Disease, [id number] Additional Instructions: Fill the prescriptions and take as directed. Recommend that you go to your local health department for comprehensive sexually transmitted disease testing. You have been treated for a suspected gonorrhea and chlamydia. Avoid having interc ourse until the results of gonorrhea and chlamydia testing are available, these results will not be available for 48 hours. If one or both of these tests is positive, you need to refrain from intercourse for approximately 1 week following the treatment of any current partners. Follow-up with your primary care doctor if symptoms persist, return to ER symptoms worsen. Scripts Metronidazole (METROGEL-VAGINAL) 70 Gm Gel.w.appl 1 APPFUL VG QHS for 5 Days, #5 ASHLEY 0 Refills insert 5 grams of gel into vagina at bedtime for 5 days Prov: YADIEL CERVANTES APRN 02/17/21 Doxycycline Hyclate (DOXYCYCLINE HYCLATE) 100 Mg Tablet 1 TAB PO BID, #14 TAB 0 Refills Prov: YADIEL CERVANTES RADIOTELEPHONE OPERATOR 02/17/21 Problem Qualifiers YADIEL CERVANTES APRN Feb 17, 2021 10:33
[2021-02-17 11:10] LABS: BILIRUBIN,URINE NEGATIVE (NEG); CLARITY,URINE CLEAR; COLOR,URINE YELLOW; NITRITE,URINE NEGATIVE (NEG); PH,URINE 7.5 (<5.0-8.0); PROTEIN,URINE NEGATIVE (NEG-TRACE)
[2021-02-17 11:19] LABS: AMORPHOUS SEDIMENT,UR PRESENT /HPF; BACTERIA,URINE FEW /HPF (0-FEW); RBC,URINE 0 /HPF (0-2)
[2021-02-17] MEDS ORDERED: DOXY100T PO (11:36)
[2021-02-17] MEDS ORDERED: METR70GE14 VG (11:36)
[2021-02-18 20:22] LABS: GC PROBE Negative (Negative)
== END 2021-02-17 12:24 | disposition home or self-care (01) ==
LOC: ER 09:42
DX: N76.0 Acute vaginitis (principal); B96.89 Other specified bacterial agents as the cause of diseases classified elsewhere; Z87.891 Personal history of nicotine dependence; Z20.2 Contact with and (suspected) exposure to infections with a predominantly sexual mode of transmission; Z88.8 Allergy status to other drugs, medicaments and biological substances
CPT/HCPCS: 81001; 81025; 87086; 87491; 87591; 96372; 99284; J0696; Q0111

== ENCOUNTER 2021-04-14 07:57 | Emergency (ER) | payer SELFPAY ==
[~2021-04-14] VITALS: Ht 160 cm; Wt 63.0 kg
[2021-04-14 08:12] VITALS: BP 112/55
[2021-04-14] MEDS ORDERED: cefTRIAXone IM 500 MG VIAL. IM ONE (08:30)
--- NOTE | 2021-04-14 09:05 | ED.ADGEN ---
Past Medical History Past Medical History: No Pertinent History Past Surgical History: No Surgical History Smoking Status: Never Smoker Alcohol Use: Occasionally Drug Use: None General Adult EDM: Chief Complaint: SEXUALLY TRANSMITTED DISEASE HPI: HPI: Patient is a 20-year-old female who presents to the emergency room complaining of pelvic pain. Patient has been having pain for the last 2 weeks. She states it has been this constant dull pain. She is having yellow vaginal discharge most days. She states there is some smell to her urine. She denies any dysuri a. She denies pain with intercourse. She has never had anything like this before. She not tried to take anything for pain. Pain is now worse with movement. Review of Systems: Review of Systems: Complete ROS is negative unless otherwise documented in HPI Current Medications: Current Medications Medications (Trade) Dose Ordered Sig/Shabbir Start Time Stop Time Status Last Admin Dose Admin Ceftriaxone Sodium (Rocephin Im) 500 mg 1X ONCE 04/14/21 08:30 04/14/21 08:31 DC 04/14/21 08:55 500 MG Allergies: Allergies: Allergies Coded Allergies Type Severity Reaction Last Updated Verified butorphanol Allergy Severe Anaphylaxis 05/04/17 Yes Physical Exam: PE: Constitutional: Well developed, well nourished, no acute distress, non-toxic appearance. HENT: Normocephalic, atraumatic, bilateral external ears normal, nose normal. Eyes: PERRLA, EOMI, conjunctiva normal, no discharge. Neck: Normal range of motion, no stridor. Cardiovascular: Heart rate regular rhythm Lungs & Thorax: Respirations even and unlabored, no retractions, no respiratory distress Pelvic Exam: Funeral Home Manager present Abdomen: Nontender, soft External Genitalia: Normal Skin Speculum: Normal vaginal mucosa, yellow vaginal discharge Bimanual: No adnexal masses or tenderness, No CMT Skin: Warm, dry, no erythema, no rash. Back: No tenderness Extremities: No cyanosis, ROM intact, no edema. Neurologic: Alert and oriented X 3, no focal deficits noted. Psychologic: Affect normal, judgement normal, mood normal. Current Patient Data: Labs: Laboratory Tests Test 04/14/21 09:09 04/14/21 09:12 Urine Collection Type Unknown Urine Color Yellow Urine Clarity Clear Urine pH 6.0 (<5.0-8.0) Urine Specific [place] 1.025 (1.000-1.030) Urine Protein Negative mg/dL (NEG-TRACE) Urine Glucose (UA) Negative mg/dL (NEG) Urine Ketones (Stick) Negative mg/dL (NEG) Urine Blood Negative (NEG) Urine Nitrite Negative (NEG) Urine Bilirubin Negative (NEG) Urine Urobilinogen Dipstick 1.0 mg/dL (0.2 mg/dL) Urine Leukocyte Esterase Negative (NEG) Urine RBC 0 /HPF (0-2) Urine WBC 0 /HPF (0-4) Urine Squamous Epithelial Cells Occ /LPF Urine Bacteria 0 /HPF (0-FEW) POC Urine HCG, Qualitative Hcg negative (Negative) Microbiology 04/14/21 Wet Prep - Final, Complete Vital Signs: Vital Signs Date Time Temp Pulse Resp B/P (MAP) Pulse Ox O2 Delivery O2 Flow Rate FiO2 04/14/21 08:12 98.0 77 18 112/55 (74) 95 Room Air 98.0 EKG: EKG: [] Heart Score: C/O Chest Pain: N/A Risk Factors: Risk Factors: DM, Current or recent (<one month) smoker, HTN, HLP, family history of CAD, obesity. Risk Scores: Score 0 - 3: 2.5% MACE over next 6 weeks - Discharge Home Score 4 - 6: 20.3% MACE over next 6 weeks - Admit for Clinical Observation Score 7 - 10: 72.7% MACE over next 6 weeks - Early Invasive Strategies Radiology/Procedures: Radiology/Procedures: [] Course & Med Decision Making: Course & Med Decision Making Pertinent Labs and Imaging studies reviewed. (See chart for details) Patient is a 20 year-old female who presents to the Emergency Room complaining of pelvic pain. Patient's presentation is concerning for pathology. On exam, patient has yellow vaginal discharge without cervical motion tenderness. Exam is consistent with cervicitis without pelvic inflammatory disease. Exam is not concerning for tubo-ovarian abscess and transvaginal ultrasound is not indicated at this time. I did discuss with the patient signs and symptoms of a TOA including fever and severe pelvic pain. Wet mount and GC/Chal swabs were collected and sent to the lab. Wet mount shows white blood cells. Patient will be treated empirically for GC/Chal with Rocephin and doxycycline. I have discussed with the patient the importance of any partners getting tested and treated. We have discussed that if her partners do not get treated then she can contract the infection again. We discussed that these infections do carry the risk of scarring which can lead to fertility issues. We discussed that she will need to follow up with the health department, primary care, or OBGYN to have comprehensive STD testing done. Fabian Disclaimer: Fabian Disclaimer: This electronic medical record was generated, in whole or in part, using a voice recognition dictation system. Departure Departure Impression: Primary Impression: Sexually transmitted disease Disposition: HOME / SELF CARE / HOMELESS Condition: STABLE Referrals: NO PCP (PCP) Patient Instructions: Cervicitis Scripts Doxycycline Hyclate (DOXYCYCLINE HYCLATE) 100 Mg Capsule 1 CAP PO BID, #14 CAP Prov: RACHEL THOMPSON MD 04/14/21 RACHEL THOMPSON MD April 14, 2021 09:05
[2021-04-14 09:25] LABS: BILIRUBIN,URINE NEGATIVE (NEG); CLARITY,URINE CLEAR; COLOR,URINE YELLOW; NITRITE,URINE NEGATIVE (NEG); PROTEIN,URINE NEGATIVE (NEG-TRACE)
[2021-04-14 09:43] LABS: BACTERIA,URINE 0 /HPF (0-FEW); RBC,URINE 0 /HPF (0-2); WBC,URINE 0 /HPF (0-4)
[2021-04-14] MEDS ORDERED: DOXY100C2 PO (09:46)
[2021-04-15 13:13] LABS: GC PROBE Negative (Negative)
== END 2021-04-14 10:01 | disposition home or self-care (01) ==
LOC: ER 07:57
DX: A64 Unspecified sexually transmitted disease (principal); Z88.8 Allergy status to other drugs, medicaments and biological substances
CPT/HCPCS: 81001; 81025; 87491; 87591; 96372; 99284; J0696; Q0111

== ENCOUNTER 2021-06-20 07:28 | Emergency (ER) | payer SELFPAY ==
[~2021-06-20] VITALS: Ht 160 cm; Wt 63.6 kg
[~2021-06-20 07:28] MED LIST changes: +DOXY100C3 PO
--- NOTE | 2021-06-20 08:57 | ED.ADGEN ---
Past Medical History Past Medical History: No Pertinent History Past Surgical History: No Surgical History Smoking Status: Never Smoker Alcohol Use: Occasionally Drug Use: None General Adult EDM: Chief Complaint: SEXUALLY TRANSMITTED DISEASE HPI: HPI: Patient is a 21-year-old female who arrives ambulatory to the emergency department complaining of a weeklong history of vaginal discharge as well as pelvic cramping. Patient is of the belief that she may likely have a sexually transmitted disease as her partner has been pulled ligaments in his sexual behavior. Patient states she wants to be evaluated for her symptoms. She denies fevers. She further denies any bleeding. She further states the likelihood of her being is very small. She is awake, alert and nontoxic-appearing. Review of Systems: Review of Systems: Constitutional: Denies fever or chills. [] Eyes: Denies change in visual acuity. [] HENT: Denies nasal congestion or sore throat. [] Respiratory: Denies cough or shortness of breath. [] Cardiovascular: Denies chest pain or edema. [] GI: Denies abdominal pain, nausea, vomiting, bloody stools or diarrhea. [] : Reports vaginal discharge and cramping. [] Musculoskeletal: Denies back pain or joint pain. [] Integument: Denies rash. [] Neurologic: Denies headache, focal weakness or sensory changes. [] Endocrine: Denies polyuria or polydipsia. [] Lymphatic: Denies swollen glands. [] Psychiatric: Denies depression or anxiety. [] Current Medications: Current Medications Medications (Trade) Dose Ordered Sig/Shabbir Start Time Stop Time Status Last Admin Dose Admin Azithromycin (Zithromax) 1,000 mg 1X ONCE 06/20/21 09:15 06/20/21 09:16 DC 06/20/21 09:28 1,000 MG Ceftriaxone Sodium (Rocephin Im) 500 mg 1X ONCE 06/20/21 09:15 06/20/21 09:16 DC 06/20/21 09:29 500 MG Lidocaine HCl (Xylocaine-Mpf 1% 2ml Vial) 2 ml STK-MED ONCE 06/20/21 09:25 06/20/21 09:25 DC Allergies: Allergies: Allergies Coded Allergies Type Severity Reaction Last Updated Verified butorphanol Allergy Severe Anaphylaxis 05/04/17 Yes Physical Exam: PE: Constitutional: Well developed, well nourished, no acute distress, non-toxic appearance. [] HENT: Normocephalic, atraumatic, bilateral external ears normal, oropharynx moist, no oral exudates, nose normal. [] Eyes: PERRLA, EOMI, conjunctiva normal, no discharge. [] Neck: Normal range of motion, no tenderness, supple, no stridor. [] Cardiovascular:Heart rate regular rhythm, no murmur [] Lungs & Thorax: Bilateral breath sounds clear to auscultation [] Abdomen: Bowel sounds normal, soft, no tenderness, no masses, no pulsatile masses. [] Skin: Warm, dry, no erythema, no rash. [] Back: No tenderness, no CVA tenderness. [] Extremities: No tenderness, no cyanosis, no clubbing, ROM intact, no edema. [] Neurologic: Alert and oriented X 3, normal motor function, normal sensory function, no focal deficits noted. [] Psychologic: Affect normal, judgement normal, mood normal. [] Current Patient Data: Labs: Laboratory Tests Test 06/20/21 08:47 06/20/21 08:53 Urine Collection Type Unknown Urine Color Yellow Urine Clarity Clear Urine pH 6.0 (<5.0-8.0) Urine Specific [place] >=1.030 (1.000-1.030) Urine Protein Negative mg/dL (NEG-TRACE) Urine Glucose (UA) Negative mg/dL (NEG) Urine Ketones (Stick) Negative mg/dL (NEG) Urine Blood Negative (NEG) Urine Nitrite Negative (NEG) Urine Bilirubin Negative (NEG) Urine Urobilinogen Dipstick 1.0 mg/dL (0.2 mg/dL) Urine Leukocyte Esterase Negative (NEG) Urine RBC 0 /HPF (0-2) Urine WBC 1-4 /HPF (0-4) Urine Squamous Epithelial Cells Many /LPF Urine Bacteria Few /HPF (0-FEW) Urine Mucus Marked /LPF POC Urine HCG, Qualitative Hcg negative (Negative) Microbiology 06/20/21 Wet Prep - Final, Complete Vital Signs: Vital Signs Date Time Temp Pulse Resp B/P (MAP) Pulse Ox O2 Delivery O2 Flow Rate FiO2 06/20/21 08:43 98.0 64 16 137/81 (74) 98 Room Air 98.0 EKG: EKG: [] Heart Score: C/O Chest Pain: N/A Risk Factors: Risk Factors: DM, Current or recent (<one month) smoker, HTN, HLP, family history of CAD, obesity. Risk Scores: Score 0 - 3: 2.5% MACE over next 6 weeks - Discharge Home Score 4 - 6: 20.3% MACE over next 6 weeks - Admit for Clinical Observation Score 7 - 10: 72.7% MACE over next 6 weeks - Early Invasive Strategies Radiology/Procedures: Radiology/Procedures: [] Course & Med Decision Making: Course & Med Decision Making Pertinent Labs and Imaging studies reviewed. (See chart for details) [] Dragon Disclaimer: Dragon Disclaimer: This electronic medical record was generated, in whole or in part, using a voice recognition dictation system. Departure Departure Impression: Primary Impression: Concern about sexually transmitted disease in female withoutdiagnosis Disposition: HOME / SELF CARE / HOMELESS Condition: STABLE Referrals: NO PCP (PCP) Patient Instructions: Sexually Transmitted Disease Additional Instructions: The patient is verbalized that she needs to depart. Her lab work is not yet been returned however I have provided her with a prescription for Flagyl and asked that she contact the hospital for her results. Should those results be positive for bacterial vaginosis or trichomoniasis, I advised that she take the prescription. If the patient has negative results, she can discard the prescri ption. She has been further instructed to avoid sexual contact with anyone who has not been get tested for STDs. The patient understands and has agreed to do so patient is nontoxic-appearing and stable for discharge Scripts Metronidazole (METRONIDAZOLE) 500 Mg Tablet 1 TAB PO BID for 7 Days, #14 TAB 0 Refills Prov: STEFAN BENNETT DO 06/20/21 STEFAN BENNETT DO Jun 20, 2021 08:56
[2021-06-20 09:02] LABS: BILIRUBIN,URINE NEGATIVE (NEG); CLARITY,URINE CLEAR; COLOR,URINE YELLOW; NITRITE,URINE NEGATIVE (NEG); PROTEIN,URINE NEGATIVE (NEG-TRACE)
[2021-06-20 09:07] LABS: BACTERIA,URINE FEW /HPF (0-FEW); RBC,URINE 0 /HPF (0-2)
[2021-06-20] MEDS ORDERED: AZITHROMYCIN 250 MG TABLET. PO ONE (09:15)
[2021-06-20] MEDS ORDERED: cefTRIAXone IM 500 MG VIAL. IM ONE (09:15)
[2021-06-20] MEDS ORDERED: LIDOCAINE 1% PF 2 ML VIAL. ONE (09:25)
[2021-06-20 12:15] VITALS: BP 127/68
[2021-06-20] MEDS ORDERED: METR-34 PO (12:25)
== END 2021-06-20 12:30 | disposition home or self-care (01) ==
LOC: ER 07:28
DX: Z20.2 Contact with and (suspected) exposure to infections with a predominantly sexual mode of transmission (principal); N89.8 Other specified noninflammatory disorders of vagina; Z88.8 Allergy status to other drugs, medicaments and biological substances
CPT/HCPCS: 81001; 81025; 87491; 87591; 96372; 99285; J0696; Q0111

== ENCOUNTER 2021-10-20 18:52 | Emergency (ER) | payer SELFPAY ==
[~2021-10-20] VITALS: Ht 160 cm; Wt 65.0 kg
[~2021-10-20 18:52] MED LIST changes: +METR-34 PO
[2021-10-20 20:46] VITALS: BP 109/67
[2021-10-20 20:50] LABS: BILIRUBIN,URINE NEGATIVE (NEG); CLARITY,URINE CLEAR; COLOR,URINE YELLOW; NITRITE,URINE NEGATIVE (NEG); PROTEIN,URINE NEGATIVE (NEG-TRACE)
[2021-10-20 20:52] LABS: U PREG PATIENT NEGATIVE (NEG)
[2021-10-20 20:54] LABS: BACTERIA,URINE 0 /HPF (0-FEW); RBC,URINE 0 /HPF (0-2); WBC,URINE 0 /HPF (0-4)
== END 2021-10-20 23:00 | disposition left against medical advice (07) ==
LOC: ER 18:52
DX: R10.9 Unspecified abdominal pain (principal); Z53.21 Procedure and treatment not carried out due to patient leaving prior to being seen by health care provider
CPT/HCPCS: 81001; 81025

== ENCOUNTER 2021-10-21 08:54 | Emergency (ER) | payer SELFPAY ==
[~2021-10-21] VITALS: Ht 160 cm; Wt 61.0 kg
[2021-10-21] MEDS ORDERED: IV NORMAL SALINE 1000ML BAG 1,000 ML IV ONE (09:30)
[2021-10-21] MEDS ORDERED: ONDANSETRON PF 4 MG/2 ML VIAL. IVP ONE (09:30)
[2021-10-21 09:57] LABS: CALCIUM 8.3 mg/dL (8.5-10.1); CREATININE 0.6 mg/dL (0.6-1.0); GFR 151.3; POTASSIUM 3.3 mmol/L (3.5-5.1)
[2021-10-21 10:00] LABS: BASO % 0 % (0-3); EOS % 1 % (0-3); HEMATOCRIT 41.9 % (36.0-47.0); HEMOGLOBIN 14.1 g/dL (12.0-15.5); LYMPH # 0.7 x10^3/uL (1.0-4.8); LYMPH % 31 % (24-48); MEAN CORPUSCULAR HEMOGLOBIN 31 pg (25-35); MEAN CORPUSCULAR HGB CONC 34 g/dL (31-37); MEAN CORPUSCULAR VOLUME 91 fL (79-100); MONO # 0.3 x10^3/uL (0.0-1.1); MONO % 13 % (0-9); NEUT # 1.3 x10^3/uL (1.8-7.7); NEUT % 55 % (31-73); PLATELET COUNT 186 x10^3/uL (140-400); RED BLOOD COUNT 4.61 x10^6/uL (3.50-5.40); RED CELL DISTRIBUTION WIDTH 12.7 % (11.5-14.5); WHITE BLOOD COUNT 2.4 x10^3/uL (4.0-11.0)
[2021-10-21 10:02] LABS: BILIRUBIN,URINE NEGATIVE (NEG); CLARITY,URINE CLEAR; COLOR,URINE YELLOW; NITRITE,URINE NEGATIVE (NEG); PH,URINE 6.5 (<5.0-8.0); PROTEIN,URINE NEGATIVE (NEG-TRACE)
[2021-10-21 10:03] LABS: ALBUMIN 3.8 g/dL (3.4-5.0); ALBUMIN/GLOBULIN RATIO 1.1 (1.0-1.7); TOTAL BILIRUBIN 0.8 mg/dL (0.2-1.0); TOTAL PROTEIN 7.4 g/dL (6.4-8.2)
[2021-10-21 10:18] LABS: BACTERIA,URINE 0 /HPF (0-FEW); RBC,URINE 0 /HPF (0-2)
--- NOTE | 2021-10-21 10:20 | RAD ---
US PELVIS COMPLETE History: Reason: torsion study, rt low pelvic pain / Spl. Instructions: / History: Comparison: None Technique: Grayscale and color Doppler imaging of the pelvis was performed using transabdominal techn ique. Findings: The uterus measures 9.0 x 6.0 x 5.0 cm. Retroverted uterus. The endometrial stripe measures 7 mm. Right ovary measures 4.7 x 2.2 x 2.1 cm. Left ovary measures 3.1 x 2.0 x 2.1 cm. Normal Doppler flow to the ovaries. No adnexal masses are seen. IMPRESSION: 1. Unremarkable pelvic ultrasound. Electronically signed by: Trevor Jaramillo DO (10/21/2021 10:17 AM) [id number]
[2021-10-21] MEDS ORDERED: IOHEXOL 300 MG/ML 100ML VIAL. IV ONE (11:30)
[2021-10-21] MEDS ORDERED: CONTRAST GIVEN. MC PRN (11:30)
--- NOTE | 2021-10-21 11:50 | RAD ---
CT abdomen pelvis with contrast dated 10/21/2021. No comparison available. Clinical data indication: Abdominal pain. TECHNIQUE: Contiguous axial imaging the abdomen pelvis performed after the administration of 75 cc Omnipaque 300 . One or more of the following individualized dose reduction techniques were utilized for this examinat ion: 1. Automated exposure control 2. Adjustment of the mA and/or kV according to patient size 3. Use of iterative reconstruction technique. FINDINGS: Limited images of lung bases are clear. Heart size within normal limits. No pleural or pericardial ef fusion. Liver, spleen, pancreas, adrenal glands, gallbladder and kidneys are unremarkable. No hydronephrosis. Unopacified GI tract normal in caliber and contour. No bowel wall thickening. No inflammatory strandi ng in the mesentery. The appendix is normal in caliber. No ascites or lymphadenopathy. Abdominal aort a normal in caliber. Images of pelvis show nondistended urinary bladder. Uterus is retroverted. There is a trace amount of free pelvic fluid. No pelvic adenopathy. Bone windows show no acute findings. IMPRESSION: 1. No acute abnormality of abdomen or pelvis. Normal appendix. 2. Trace amount of free pelvic fluid, nonspecific. Electronically signed by: Abelino Cobos MD (10/21/2021 11:48 AM) [facility]
[2021-10-21 11:57] VITALS: BP 108/56
--- NOTE | 2021-10-21 12:40 | PHYS DOC ---
Past Medical History Past Medical History: No Pertinent History Past Surgical History: No Surgical History Smoking Status: Never Smoker Alcohol Use: Occasionally Drug Use: None General Adult EDM: Chief Complaint: ABDOMINAL PAIN HPI: HPI: Patient is a 21-year-old female reports emergency department with concerns of lower left and lower right abdominal pain. Patient reports she woke up yesterday morning with abdominal pain all over that seem to settle to her low abdomen throughout the day. Patient reports she is on her menstrual cycle however it started late and she is having heavier bleeding than normal. Patient reports her last menstrual cycle should have started on October 02 however this menstrual cycle started yesterday. Patient denies vaginal discharge, denies vaginal itching or vaginal lesions, denies STI concerns. Patient reports she feels nauseated, vomited one time yesterday evening noticed the white foam. Has not had any more vomiting episodes. Reports a normal bowel movement yesterday, denies constipation problems. Patient denies burning with urination, denies in creased urinary frequency, denies urinary pressure. Patient denies back pain. Patient denies recent fever or chills. Denies other physical complaints or physical concerns. Review of Systems: Review of Systems: 14 body systems of review of systems have been reviewed. See HPI for pertinent positives and negative responses, otherwise all other systems are negative, nonpertinent or noncontributory. Constitutional: Negative except as outlined in HPI above. Skin: Negative except as outlined in HPI above. Eyes: Negative except as outlined in HPI above. HENT: Negative except as outlined in HPI above. Respiratory: Negative except as outlined in HPI above. Cardiovascular: Negative except as outlined in HPI above. GI: Negative except as outlined in HPI above. : Negative except as outlined in HPI above. Musculoskeletal: Negative except as outlined in HPI above. Integument: Negative except as outlined in HPI above. Neurologic: Negative except as outlined in HPI above. Endocrine: Negative except as outlined in HPI above. Lymphatic: Negative except as outlined in HPI above. Psychiatric: Negative except as outlined in HPI above. Heart Score: C/O Chest Pain: No Risk Factors: Risk Factors: DM, Current or recent (<one month) smoker, HTN, HLP, family history of CAD, obesity. Risk Scores: Score 0 - 3: 2.5% MACE over next 6 weeks - Discharge Home Score 4 - 6: 20.3% MACE over next 6 weeks - Admit for Clinical Observation Score 7 - 10: 72.7% MACE over next 6 weeks - Early Invasive Strategies Current Medications: Current Medications Medications (Trade) Dose Ordered Sig/Shabbir Start Time Stop Time Status Last Admin Dose Admin Info (CONTRAST GIVEN -- Rx MONITORING) 1 each PRN DAILY PRN 10/21/21 11:30 10/23/21 11:29 Iohexol (Omnipaque 300 Mg/ml) 75 ml 1X ONCE 10/21/21 11:30 10/21/21 11:32 DC 10/21/21 11:35 75 ML Ondansetron HCl (Zofran) 4 mg 1X ONCE 10/21/21 09:30 10/21/21 09:31 DC 10/21/21 09:42 4 MG Sodium Chloride 1,000 ml @ 1,000 mls/hr 1X ONCE 10/21/21 09:30 10/21/21 10:29 DC 10/21/21 09:43 1,000 MLS/HR Allergies: Allergies: Allergies Coded Allergies Type Severity Reaction Last Updated Verified butorphanol Allergy Severe Anaphylaxis 05/04/17 Yes Physical Exam: PE: Constitutional: Well developed, well nourished, no acute distress, non-toxic appearance. 21-year-old female in no apparent distress. HENT: Normocephalic, atraumatic. Eyes: Conjunctiva normal, no discharge. Neck: Normal range of motion. Cardiovascular: Distal cap refill less than 2 seconds, no cyanosis appreciated. Lungs & Thorax: Patient is in no respiratory distress, no adventitious lung sounds appreciated. Abdomen: Bowel sounds normal, soft, no tenderness, no masses, no pulsatile masses. No bruising or skin discoloration of the abdomen. Skin: Warm, dry, no erythema, no rash. Back: No tenderness, no CVA tenderness. Extremities: No tenderness, no cyanosis, no clubbing, ROM intact, no edema. Neurologic: Alert and oriented X 3, normal motor function, normal sensory function, no focal deficits noted. Psychologic: Affect normal, judgement normal, mood normal. : Pelvic examination performed with female nurse at bedside for document management specialist, no lesions or abnormalities noted of the external vaginal structures, no drainage or vaginal discharge appreciated externally. Speculum exam revealed dark blood in the vaginal vault, the cervical os is closed, no other abnormalities appreciated, wet prep and GC/chlamydia cultures obtained and sent to lab. No left or right adnexal tenderness, no cervical motion tenderness appreciated. Current Patient Data: Labs: Laboratory Tests Test 10/21/21 09:10 10/21/21 09:19 10/21/21 09:40 Urine Collection Type Unknown Urine Color Yellow Urine Clarity Clear Urine pH 6.5 Urine Specific Isabel 1.020 Urine Protein Negative mg/dL Urine Glucose (UA) Negative mg/dL Urine Ketones (Stick) Negative mg/dL Urine Blood Negative Urine Nitrite Negative Urine Bilirubin Negative Urine Urobilinogen Dipstick 2.0 mg/dL Urine Leukocyte Esterase Negative Urine RBC 0 /HPF Urine WBC 1-4 /HPF Urine Squamous Epithelial Cells Mod /LPF Urine Bacteria 0 /HPF Urine Mucus Marked /LPF Bedside Urine HCG, Qualitative Hcg negative White Blood Count 2.4 x10^3/uL Red Blood Count 4.61 x10^6/uL Hemoglobin 14.1 g/dL Hematocrit 41.9 % Mean Corpuscular Volume 91 fL Mean Corpuscular Hemoglobin 31 pg Mean Corpuscular Hemoglobin Concent 34 g/dL Red Cell Distribution Width 12.7 % Platelet Count 186 x10^3/uL Neutrophils (%) (Auto) 55 % Lymphocytes (%) (Auto) 31 % Monocytes (%) (Auto) 13 % Eosinophils (%) (Auto) 1 % Basophils (%) (Auto) 0 % Neutrophils # (Auto) 1.3 x10^3/uL Lymphocytes # (Auto) 0.7 x10^3/uL Monocytes # (Auto) 0.3 x10^3/uL Eosinophils # (Auto) 0.0 x10^3/uL Basophils # (Auto) 0.0 x10^3/uL Sodium Level 139 mmol/L Potassium Level 3.3 mmol/L Chloride Level 101 mmol/L Carbon Dioxide Level 28 mmol/L Anion Gap 10 Blood Urea Nitrogen 9 mg/dL Creatinine 0.6 mg/dL Estimated GFR (Cockcroft-Gault) 151.3 BUN/Creatinine Ratio 15 Glucose Level 87 mg/dL Calcium Level 8.3 mg/dL Total Bilirubin 0.8 mg/dL Aspartate Amino Transf (AST/SGOT) 17 U/L Alanine Aminotransferase (ALT/SGPT) 17 U/L Alkaline Phosphatase 96 U/L Total Protein 7.4 g/dL Albumin 3.8 g/dL Albumin/Globulin Ratio 1.1 Lipase 67 U/L Current Medications Medications (Trade) Dose Ordered Sig/Shabbir Route PRN Reason Start Time Stop Time Status Last Admin Dose Admin Ondansetron HCl (Zofran) 4 mg 1X ONCE IVP 10/21/21 09:30 10/21/21 09:31 DC 10/21/21 09:42 4 MG Sodium Chloride 1,000 ml @ 1,000 mls/hr 1X ONCE IV 10/21/21 09:30 10/21/21 10:29 DC 10/21/21 09:43 1,000 MLS/HR Iohexol (Omnipaque 300 Mg/ml) 75 ml 1X ONCE IV 10/21/21 11:30 10/21/21 11:32 DC 10/21/21 11:35 75 ML Info (CONTRAST GIVEN -- Rx MONITORING) 1 each PRN DAILY PRN MC SEE COMMENTS 10/21/21 11:30 10/23/21 11:29 Laboratory Tests Test 10/21/21 09:10 10/21/21 09:19 10/21/21 09:40 Urine Collection Type Unknown Urine Color Yellow Urine Clarity Clear Urine pH 6.5 (<5.0-8.0) Urine Specific Isabel 1.020 (1.000-1.030) Urine Protein Negative mg/dL (NEG-TRACE) Urine Glucose (UA) Negative mg/dL (NEG) Urine Ketones (Stick) Negative mg/dL (NEG) Urine Blood Negative (NEG) Urine Nitrite Negative (NEG) Urine Bilirubin Negative (NEG) Urine Urobilinogen Dipstick 2.0 mg/dL (0.2 mg/dL) Urine Leukocyte Esterase Negative (NEG) Urine RBC 0 /HPF (0-2) Urine WBC 1-4 /HPF (0-4) Urine Squamous Epithelial Cells Mod /LPF Urine Bacteria 0 /HPF (0-FEW) Urine Mucus Marked /LPF POC Urine HCG, Qualitative Hcg negative (Negative) White Blood Count 2.4 x10^3/uL (4.0-11.0) L Red Blood Count 4.61 x10^6/uL (3.50-5.40) Hemoglobin 14.1 g/dL (12.0-15.5) Hematocrit 41.9 % (36.0-47.0) Mean Corpuscular Volume 91 fL (79-100) Mean Corpuscular Hemoglobin 31 pg (25-35) Mean Corpuscular Hemoglobin Concent 34 g/dL (31-37) Red Cell Distribution Width 12.7 % (11.5-14.5) Platelet Count 186 x10^3/uL (140-400) Neutrophils (%) (Auto) 55 % (31-73) Lymphocytes (%) (Auto) 31 % (24-48) Monocytes (%) (Auto) 13 % (0-9) H Eosinophils (%) (Auto) 1 % (0-3) Basophils (%) (Auto) 0 % (0-3) Neutrophils # (Auto) 1.3 x10^3/uL (1.8-7.7) L Lymphocytes # (Auto) 0.7 x10^3/uL (1.0-4.8) L Monocytes # (Auto) 0.3 x10^3/uL (0.0-1.1) Eosinophils # (Auto) 0.0 x10^3/uL (0.0-0.7) Basophils # (Auto) 0.0 x10^3/uL (0.0-0.2) Sodium Level 139 mmol/L (136-145) Potassium Level 3.3 mmol/L (3.5-5.1) L Chloride Level 101 mmol/L (98-107) Carbon Dioxide Level 28 mmol/L (21-32) Anion Gap 10 (6-14) Blood Urea Nitrogen 9 mg/dL (7-20) Creatinine 0.6 mg/dL (0.6-1.0) Estimated GFR (Cockcroft-Gault) 151.3 BUN/Creatinine Ratio 15 (6-20) Glucose Level 87 mg/dL (70-99) Calcium Level 8.3 mg/dL (8.5-10.1) L Total Bilirubin 0.8 mg/dL (0.2-1.0) Aspartate Amino Transferase (AST) 17 U/L (15-37) Alanine Aminotransferase (ALT) 17 U/L (14-59) Alkaline Phosphatase 96 U/L (46-116) Total Protein 7.4 g/dL (6.4-8.2) Albumin 3.8 g/dL (3.4-5.0) Albumin/Globulin Ratio 1.1 (1.0-1.7) Lipase 67 U/L (73-393) L Laboratory Tests 10/21/21 09:40 Laboratory Tests 10/21/21 09:40 Microbiology 10/21/21 Wet Prep - Final, Complete Vital Signs: Vital Signs Date Time Temp Pulse Resp B/P (MAP) Pulse Ox O2 Delivery O2 Flow Rate FiO2 10/21/21 11:57 54 18 108/56 (73) 100 Room Air 10/21/21 10:17 10/21/21 09:10 97.7 97.7 EKG: EKG: [] Radiology/Procedures: Radiology/Procedures: REASON: Lower right abdominal pain PROCEDURE: CT ABD PELV W/ IV CONTRST ONLY CT abdomen pelvis with contrast dated 10/21/2021. No comparison available. Clinical data indication: Abdominal pain. TECHNIQUE: Contiguous axial imaging the abdomen pelvis performed after the administration of 75 cc Omnipaque 300. One or more of the following individualized dose reduction techniques were utilized for this examination: 1. Automated exposure control 2. Adjustment of the mA and/or kV according to patient size 3. Use of iterative reconstruction technique. FINDINGS: Limited images of lung bases are clear. Heart size within normal limits. No pleural or pericardial effusion. Liver, spleen, pancreas, adrenal glands, gallbladder and kidneys are unremarkable. No hydronephrosis. Unopacified GI tract normal in caliber and contour. No bowel wall thickening. No inflammatory stranding in the mesentery. The appendix is normal in caliber. No ascites or lymphadenopathy. Abdominal aorta normal in caliber. Images of pelvis show nondistended urinary bladder. Uterus is retroverted. There is a trace amount of free pelvic fluid. No pelvic adenopathy. Bone windows show no acute findings. IMPRESSION: 1. No acute abnormality of abdomen or pelvis. Normal appendix. 2. Trace amount of free pelvic fluid, nonspecific. Electronically signed by: Abelino Cobos MD (10/21/2021 11:48 AM) [facility] REASON: torsion study, rt low pelvic pain PROCEDURE: PELVIS ULTRASOUND US PELVIS COMPLETE History: Reason: torsion study, rt low pelvic pain / Spl. Instructions: / History: Comparison: None Technique: Grayscale and color Doppler imaging of the pelvis was performed using transabdominal technique. Findings: The uterus measures 9.0 x 6.0 x 5.0 cm. Retroverted uterus. The endometrial stripe measures 7 mm. Right ovary measures 4.7 x 2.2 x 2.1 cm. Left ovary measures 3.1 x 2.0 x 2.1 cm. Normal Doppler flow to the ovaries. No adnexal masses are seen. IMPRESSION: 1. Unremarkable pelvic ultrasound. Electronically signed by: Trevor Jaramillo DO (10/21/2021 10:17 AM) [id number] Course & Med Decision Making: Course & Med Decision Making Pertinent Labs and Imaging studies reviewed. (See chart for details) 21-year-old female, vital signs reviewed, presents emerged from concerning low abdomen pains. Physical examination concerning for pain during menstrual cycle with abnormal uterine bleeding versus ovarian torsion versus STIs versus other pelvic abnormality. Will order urinalysis assay, urine test, pelvic sonogram, pelvic exam with wet prep, GC/chlamydia testing, CBC, CMP for Wet prep cultures negative for bacterial vaginosis, trichomonas, or yeast infection, GC/chlamydia testing pending, pelvic sonogram unremarkable, serum labs unremarkable, CT abdomen pelvis with IV contrast ordered. CT abdomen pelvis with IV contrast unremarkable. Discussed with patient most likely menstrual cycle pain with abnormal uterine bleeding, recommended follow- up with [facility], [id number] Tylenol and or Motrin for ongoing aches and pains, patient was given IV Toradol and reports good pain relief with medication given. Patient reports her pain is now a 2 out of 10. Patient gave verbal understanding of and is amenable to ED discharge planning. Discussed with the patient all findings and diagnostic testing as well as the need to follow-up with their primary care provider for further evaluation and treatment or return to the ED if any new or worsening symptoms. Strict return precautions were also discussed at length, the patient voiced understanding and agreement with the discharge planning. The patient was nontoxic in appearance, in no apparent distress, and hemodynamically stable at the time of disposition. Dragon Disclaimer: [employer] Disclaimer: This electronic medical record was generated, in whole or in part, using a voice recognition dictation system. Departure Departure Impression: Primary Impression: Abnormal uterine bleeding Additional Impression: Menstrual cramps Disposition: HOME / SELF CARE / HOMELESS Condition: GOOD Referrals: NO PCP (PCP) Patient Instructions: Abnormal Uterine Bleeding Additional Instructions: You are seen today in the emergency department for lower abdomen pain. An exten sive abdomen/pelvic work-up was done today in the emergency department. You are not . Your blood work did not show any concerning findings, the pelvic exam was nonconcerning, you do not have bacterial vaginosis, you do not have trichomonas or yeast infection. As we discussed the gonorrhea/chlamydia cultures are still pending. The sonogram did not show any infection or torsion of your ovaries or ovarian cysts, the CT of your abdomen pelvis did not show any concerning findings. Your pain is most likely related to your late menstrual cycle, please follow-up with a [facility] for ongoing aches and pains and further evaluation of your abnormal uterine bleeding as we discussed. You may use [id number] Tylenol and/or Motrin for ongoing aches and pains. Thank you for visiting our Emergency Department. It was a pleasure taking care of you today in the emergency department and we appreciate you trusting us with your care. If any additional problems come up don't hesitate to return to visit us. Please follow up with your primary care provider so they can plan additional care if needed and know about the problem that you had. If symptoms worsen come back to the Emergency Department. Any concerning symptoms that start such as chest pain, shortness of air, weakness or numbness on one side of the body, running high fevers or any other concerning symptoms return to the ER. EMERGENCY DEPARTMENT GENERAL DISCHARGE INSTRUCTIONS Thank you for coming to [facility] Emergency Department (ED) today and trusting us with you care. We trust that you had a positive experience in our Emergency Department. If you wish to speak to the department management, you may call the Director at [phone]. YOUR FOLLOW UP INSTRUCTIONS ARE FOLLOWS: 1. Do you have a private Doctor? If you do not have a private doctor, please ask for a resource list of physicians or clinics that may be able to assist you with follow up care. 2. The Emergency Physicain has interpreted your x-rays. The X-Ray specialist will also review them. If there is a change in the findings, you will be notified in 48 hours when at all possible. 3. A lab test or culture has been done, your results will be reviewed and you will be notified if you need a change in treatment. ADDITIONAL INSTRUCTIONS AND INFORMATION: 1. Your care today has been supervised by a physician who is specially trained in emergency care. Many problems require more than one evaluation for a complete diagnosis and treatment. We recommend that you schedule your follow up appointment as recommended to ensure complete treatment of you illness or injury. If you are unable to obtain follow up care and continue to have a problem, or if your condition worsens, we recommend that you return to the ED. 2. We are not able to safely determine your condition over the phone nor are we able to give sound medical advice over the phone. For these safety reasons, if you call for medical advice we will ask you to come to the ED for further evaluation. 3. If you have any questions regarding these discharge instructions please call the ED at [phone]. SAFETY INFORMATION: In the interest of safety, wellness, and injury prevention; we encourage you to wear your sealbelt, if you smoke; quite smoking, and we encourage family to use a protective helmet for bicycling and other sporting events that present an increased risk for head injury. IF YOUR SYMPTOMS WORSEN OR NEW SYMPTOMS DEVELOP, OR YOU HAVE CONCERNS ABOUT YOUR CONDITION; OR IF YOUR CONDITION WORSENS WHILE YOU ARE WAITING FOR YOUR FOLLOW UP APPOINTMENT; EITHER CONTACT YOUR PRIMARY CARE DOCTOR, THE PHYSICIAN WHOSE NAME AND NUMBER YOU WERE GIVEN, OR RETURN TO THE ED IMMEDIATELY. ABELINO BRODY APRN Oct 21, 2021 12:40
[2021-10-22 19:09] LABS: GC PROBE Negative (Negative)
== END 2021-10-21 13:03 | disposition home or self-care (01) ==
LOC: ER 08:54
DX: N93.9 Abnormal uterine and vaginal bleeding, unspecified (principal); N94.6 Dysmenorrhea, unspecified; Z88.8 Allergy status to other drugs, medicaments and biological substances
CPT/HCPCS: 36415; 74177; 76856; 80053; 81001; 81025; 83690; 85025; 87491; 87591; 96361; 96374; 99285; J2405; J7030; Q0111; Q9967

== ENCOUNTER 2022-01-28 09:39 | Emergency (ER) | payer SELFPAY ==
[~2022-01-28] VITALS: Ht 160 cm; Wt 65.0 kg
[2022-01-28 10:56] LABS: BILIRUBIN,URINE NEGATIVE (NEG); CLARITY,URINE CLEAR; COLOR,URINE YELLOW
[2022-01-28 10:57] LABS: BACTERIA,URINE 0 /HPF (0-FEW); NITRITE,URINE NEGATIVE (NEG); PROTEIN,URINE NEGATIVE (NEG-TRACE); RBC,URINE 0 /HPF (0-2); UROBILINOGEN,URINE 0.2 mg/dL (0.2 mg/dL); WBC,URINE 0 /HPF (0-4)
[2022-01-28 10:58] LABS: U PREG PATIENT NEGATIVE (NEG)
--- NOTE | 2022-01-28 11:36 | PHYS DOC ---
Past Medical History Past Medical History: No Pertinent History Past Surgical History: No Surgical History Smoking Status: Never Smoker Additional Information: DOESN'T USE TOBACCO BUT HEAVILY USES THE SHEATHING ON CIGARS Alcohol Use: Rarely Drug Use: None General Adult EDM: Chief Complaint: MULTIPLE COMPLAINTS HPI: HPI: Patient is a 21-year-old female who presents to the emergency department complaining of a cold sore to her bottom lip and roof of mouth for the past 4 days. Patient states the cold sores are burning in nature, denies itching, denies pain unless something touches it. Patient also complains of intermittent headaches with sneezing for the past 4 days as well. Patient denies chest pains or shortness of breath. Denies recent fever or chills. Patient reports vaginal discharge for the past week. Patient states she has 1 sexual partner and has no STI concerns. Patient reports this vaginal discharge is whitish in color and not malodorous. Patient states her last menstrual cycle ended 1 week ago with normal duration and flow. Patient states she has had bacterial vaginosis, trichomonas, gonorrhea and chlamydia in the past and does not feel like the sy mptoms are similar with those. Patient denies a history of cold sores. Patient denies rashes or lesions to her vagina. Patient denies increased urinary frequency, urinary pressure, urinary burning, hematuria or other dysuria. Patient denies nausea, vomiting, diarrhea or abdominal discomfort. Patient denies other physical complaints or physical concerns. Review of Systems: Review of Systems: 14 body systems of review of systems have been reviewed. See HPI for pertinent positives and negative responses, otherwise all other systems are negative, nonpertinent or noncontributory. Constitutional: Negative except as outlined in HPI above. Skin: Negative except as outlined in HPI above. Eyes: Negative except as outlined in HPI above. HENT: Negative except as outlined in HPI above. Respiratory: Negative except as outlined in HPI above. Cardiovascular: Negative except as outlined in HPI above. GI: Negative except as outlined in HPI above. : Negative except as outlined in HPI above. Musculoskeletal: Negative except as outlined in HPI above. Integument: Negative except as outlined in HPI above. Neurologic: Negative except as outlined in HPI above. Endocrine: Negative except as outlined in HPI above. Lymphatic: Negative except as outlined in HPI above. Psychiatric: Negative except as outlined in HPI above. Heart Score: C/O Chest Pain: No Risk Factors: Risk Factors: DM, Current or recent (<one month) smoker, HTN, HLP, family history of CAD, obesity. Risk Scores: Score 0 - 3: 2.5% MACE over next 6 weeks - Discharge Home Score 4 - 6: 20.3% MACE over next 6 weeks - Admit for Clinical Observation Score 7 - 10: 72.7% MACE over next 6 weeks - Early Invasive Strategies Allergies: Allergies: Allergies Coded Allergies Type Severity Reaction Last Updated Verified butorphanol Allergy Severe Anaphylaxis 01/28/22 Yes Physical Exam: PE: Constitutional: Well developed, well nourished, no acute distress, non-toxic appearance. 21-year-old female in no apparent distress. HENT: Normocephalic, atraumatic. Oral mucosa is pink, moist, no deep tissue i nfectious process appreciated. There is a 2 mm in diameter ulcer to the roof of mouth centerline without purulent drainage, edges are white in color irregular. There is a 2 mm ulceration to the lower lip just right of center, does not cross vermilion border, nonweeping, there is no purulent drainage appreciated. Edges are of lip skin color, center is erythematous in color. Edges are round and regular. Eyes: Conjunctiva normal, no discharge. Neck: Normal range of motion. Cardiovascular: Distal cap refill less than 2 seconds, no cyanosis appreciated. Lungs & Thorax: Patient is in no respiratory distress, no adventitious lung sounds appreciated. Abdomen: Bowel sounds normal, soft, no tenderness, no masses, no pulsatile masses. No bruising or skin discoloration of the abdomen. Skin: Warm, dry, no erythema, no rash. Back: No tenderness, no CVA tenderness. Extremities: No tenderness, no cyanosis, no clubbing, ROM intact, no edema. Neurologic: Alert and oriented X 3, normal motor function, normal sensory function, no focal deficits noted. Psychologic: Affect normal, judgement normal, mood normal. : Pelvic examination performed with female ED nurse at bedside for lead producer, there are no rashes or lesions to the vagina or adjacent structures, no external vaginal discharge appreciated, speculum exam revealed pink nonerythematous cervix and adjacent vaginal lundberg with scant white discharge, specimen obtained and sent to lab for wet prep. Current Patient Data: Labs: Laboratory Tests Test 01/28/22 10:19 Urine Collection Type Unknown Urine Color Yellow Urine Clarity Clear Urine pH 6.0 (<5.0-8.0) Urine Specific [place] >=1.030 (1.000-1.030) Urine Protein Negative mg/dL (NEG-TRACE) Urine Glucose (UA) Negative mg/dL (NEG) Urine Ketones (Stick) Negative mg/dL (NEG) Urine Blood Negative (NEG) Urine Nitrite Negative (NEG) Urine Bilirubin Negative (NEG) Urine Urobilinogen Dipstick 0.2 mg/dL (0.2 mg/dL) Urine Leukocyte Esterase Negative (NEG) Urine RBC 0 /HPF (0-2) Urine WBC 0 /HPF (0-4) Urine Squamous Epithelial Cells Mod /LPF Urine Bacteria 0 /HPF (0-FEW) Urine Mucus Marked /LPF Urine Test Negative (NEG) Microbiology 01/28/22 Wet Prep - Final, Complete Vital Signs: Vital Signs Date Time Temp Pulse Resp B/P (MAP) Pulse Ox O2 Delivery O2 Flow Rate FiO2 01/28/22 10:27 61 120/71 (87) 100 Room Air 01/28/22 09:57 98.6 18 98.6 EKG: EKG: [] Radiology/Procedures: Radiology/Procedures: [] Course & Med Decision Making: Course & Med Decision Making Pertinent Labs and Imaging studies reviewed. (See chart for details) 21-year-old female, vital signs reviewed, presents emerged from concerning cold sore to lip and vaginal discharge. Physical examination consistent with cold sore to lower lip and roof of mouth, there were no other lesions appreciated. Patient denied STI concerns, denied rashes to her vagina, however did complain of vaginal discharge. Patient states she has unprotected sex with a single female partner, did not notice any lesions on her her partners vagina and did not notice any vaginal discharge. Discussed with patient concern for other lesions, recommended vaginal examination, patient was amenable to this planning. Patient does deny any burning or itching to her vagina. The patient urine is not infected, she is not per urine test, wet prep is negative, there is pending chlamydia and GC PCR per urine sample however low likelihood of these infections related to examination in physical presentation. Discussed with patient lip and roof of mouth lesion, strict follow-up with primary care soon, return to ER precautions or concerns were reviewed, patient gave verbal understanding of and is amenable to ED discharge planning. Discussed with the patient all findings and diagnostic testing as well as the need to follow-up with their primary care provider for further evaluation and treatment or return to the ED if any new or worsening symptoms. Strict return precautions were also discussed at length, the patient voiced understanding and agreement with the discharge planning. The patient was nontoxic in appearance, in no apparent distress, and hemodynamically stable at the time of disposition. Dragon Disclaimer: Dragon Disclaimer: This electronic medical record was generated, in whole or in part, using a voice recognition dictation system. Departure Departure Impression: Primary Impression: Cold sore Disposition: HOME / SELF CARE / HOMELESS Condition: GOOD Referrals: NO PCP (PCP) Patient Instructions: Cold Sore Additional Instructions: You were seen today in the emergency department for cold sores on your lower lip and roof of mouth. You also complained of vaginal discharge that you have had for the past week. Your pelvic examination was unremarkable, there were no signs of lesions or rashes or concerns for sexually transmitted diseases, your vaginal culture did not show any signs of trichomonas, yeast infection, or bacterial vaginosis. As we discussed the urine sample is pending gonorrhea and Chlamydia testing and should be available within the next 48 to 72 hours. There were no concerning signs of these diseases, you and I made a joint decision not to treat today, if either of these come positive you will be reached at the telephone number you left with the admitting clerks and appropriate treatment at that time. Please continue to use salt water swishes and spits, good oral care to treat your cold sores. You may consider using the [id number] medication Abreva which may help with your symptoms. I have a list of area healthcare providers and clinics free to establish primary care with. Please make an appointment for ongoing evaluation healthcare needs. Thank you for visiting our Emergency Department. It was a pleasure taking care of you today in the emergency department and we appreciate you trusting us with your care. If any additional problems come up don't hesitate to return to visit us. Please follow up with your primary care provider so they can plan additional care if needed and know about the problem that you had. If symptoms worsen come back to the Emergency Department. Any concerning symptoms that start such as chest pain, shortness of air, weakness or numbness on one side of the body, running high fevers or any other concerning symptoms return to the ER. [facility] [address] [place] [address] [facility] [address] [place] [address] [facility] [address] [facility] [place] [address] [facility] [address] [place] [address] [facility] [address] [place] [address] [address] [place] [address] [address] [place] [address] [facility] [address] [place] [address] [facility] [address] [place] [address] [facility] [address] [place] [address] IZAIAH BRODY APRN Jan 28, 2022 11:36
[2022-01-28 11:54] VITALS: BP 116/74
== END 2022-01-28 12:00 | disposition home or self-care (01) ==
LOC: ER 09:39
DX: B00.1 Herpesviral vesicular dermatitis (principal); Z88.8 Allergy status to other drugs, medicaments and biological substances
CPT/HCPCS: 81001; 81025; 87491; 87591; 99284; Q0111